=== PATIENT | female | born 1955 | race American Indian/Alaskan Native ===

== ENCOUNTER 2018-01-29 08:23 | Inpatient (IN) | payer BC ==
[2018-01-29 08:23] VITALS: BMI 28.1
[2018-01-29 09:02] LABS: LYMPH # 1.1 K/uL (1.0-4.3); MONO # 0.4 K/uL (0.0-0.8); NRBC % 0.2 % (0.0-2.0)
[2018-01-29 09:11] LABS: BASO # 0.1 K/uL (0.0-0.2); BASO % 1.2 % (0.0-2.0); LYMPH % 22.4 % (20.0-40.0); MEAN CORPUSCULAR HEMOGLOBIN 32.1 pg (27.0-31.0); MEAN CORPUSCULAR HGB CONC 34.9 g/dL (33.0-37.0); MONO % 7.6 % (0.0-10.0); NEUT # 3.5 K/uL (1.8-7.0); NEUT % 67.8 % (50.0-75.0); RBC 1.54 Mil/uL (3.80-5.20); RED CELL DISTRIBUTION WIDTH 15.1 % (11.5-14.5); WHITE BLOOD COUNT 5.1 K/uL (4.8-10.8)
[2018-01-29 09:13] LABS: INR 1.1; PROTHROMBIN TIME 12.5 SECONDS (9.7-12.2)
[2018-01-29 09:16] LABS: MEAN CELL VOLUME 91.9 fL (81.0-99.0)
[2018-01-29 09:19] LABS: ALB/GLOB RATIO 0.9 (1.0-2.1); ALBUMIN 2.9 g/dL (3.5-5.0); CALCIUM 8.3 mg/dl (8.6-10.4)
--- NOTE | 2018-01-29 09:49 | C.PDOC ---
History Of Present Illness Patient with history of Anemia presents to ED with c/o lightheadedness associated with nose bleeds for 2-3 days. Patient states she went to be checked as outpatient and hemoglobin was 4. Patient advised to come to ED for further evaluation and possible transfusion. Patient denies chest pain, sob, nausea, vomiting or any other complaints at this time. Time Seen by Provider: 01/29/18 09:03 Chief Complaint (Nursing): Abnormal Labs History Per: Patient History/Exam Limitations: no limitations Onset/Duration Of Symptoms: Days Current Symptoms Are (Timing): Still Present Past Medical History Reviewed: Historical Data, Nursing Documentation, Vital Signs Vital Signs: Last Vital Signs Temp 98.4 F 01/29/18 16:10 Pulse 71 01/29/18 16:10 Resp 20 01/29/18 16:10 BP 149/61 01/29/18 17:24 Pulse Ox 99 01/29/18 16:10 - Medical History PMH: Anemia, Diabetes, HTN Surgical History: No Surg Hx - [facility] Procedures TETANUS TOXOID ADMINIST (07/04/13) Family History: States: No Known Family Hx - Social History Hx Tobacco Use: No Hx Alcohol Use: No Hx Substance Use: No - Immunization History Hx Tetanus Toxoid Vaccination: No Hx Influenza Vaccination: No Hx Pneumococcal Vaccination: No Review Of Systems Constitutional: Negative for: Fever, Chills Cardiovascular: Positive for: Light Headedness. Negative for: Chest Pain Respiratory: Negative for: Shortness of Breath Gastrointestinal: Negative for: Nausea, Vomiting Skin: Negative for: Rash Physical Exam - Physical Exam Appears: Non-toxic, No Acute Distress Skin: Warm, Dry, No Rash Head: Atraumatic, Normacephalic Eye(s): bilateral: Normal Inspection Nose: Normal, No Epistaxis, No Deformity Oral Mucosa: Moist Tongue: Normal Appearing Lips: Normal Appearing Throat: No Erythema, No Exudate Neck: Normal ROM, Supple Cardiovascular: Rhythm Regular Respiratory: Normal Breath Sounds, No Rales, No Rhonchi, No Wheezing Gastrointestinal/Abdominal: Soft, No Tenderness, No Guarding, No Rebound Back: Normal Inspection, No CVA Tenderness Extremity: Normal ROM, Capillary Refill (<2 seconds), No Swelling Neurological/Psych: Oriented x3, Normal Speech, Normal Cognition, Normal Motor, Normal Sensation Gait: Steady ED Course And Treatment - Laboratory Results Result Diagrams: 01/29/18 08:56 01/29/18 08:56 O2 Sat by Pulse Oximetry: 100 (RA) Pulse Ox Interpretation: Normal Medical Decision Making Medical Decision Making: Plan: EKG, LABS Progress: Repeated labs Hemoglobin was 5 D/w Dr. Escobar patient to be admitted under his service. Disposition - Disposition Disposition: HOSPITALIZED Disposition Time: 09:51 Condition: STABLE - Clinical Impression Clinical Impression: Hyperkalemia, Anemia - PA / [employer] / Resident Statement MD/DO has reviewed & agrees with the documentation as recorded. - Scribe Statement The provider has reviewed the documentation as recorded by the Scribsammy Wilkerson All medical record entries made by the Denice were at my direction and personally dictated by me. I have reviewed the chart and agree that the record accurately reflects my personal performance of the history, physical exam, medical decision making, and the department course for this patient. I have also personally directed, reviewed, and agree with the discharge instructions and disposition.
--- NOTE | 2018-01-29 13:27 | PCM.SURG1 ---
Surgeon's Initial Post Op Note - Surgeon's Notes Surgeon: Alfredo Sharma MD Immigration Attorney: NONE Type of Anesthesia: Local Pre-Operative Diagnosis: Anemia Operative Findings: US showed a small but patent left basilic vein. Post-Operative Diagnosis: Anemia Operation Performed: Single lumen picc left basilic vein, 45 cm. Tip is in the SVC. Specimen/Specimens Removed: NONE Estimated Blood Loss: EBL {In ML}: 2 Blood Products Given: N/A Drains Used: No Drains Post-Op Condition: Fair Date of Surgery/Procedure: 01/29/18 Time of Surgery/Procedure: 13:20
--- NOTE | 2018-01-29 14:20 | US ---
HISTORY: elevated LFTs COMPARISON: None. TECHNIQUE: Grayscale imaging was performed. FINDINGS: LIVER: Measures 18.4 cm. There is diffuse increased echogenicity of the liver parenchyma. No mass. No intrahepatic bile duct dilatation. GALLBLADDER: The gallbladder is partially contracted There are gallstones and mild wall thickening without pericholecystic fluid. The sonographic Correa's sign is negative. COMMON BILE DUCT: Measures 7.7 mm. No stones. Mild diffuse dilatation. PANCREAS: Unremarkable as visualized. No mass. No ductal dilatation. RIGHT KIDNEY: Measures 9.0cm. Normal echogenicity. No calculus, mass, or hydronephrosis. LEFT KIDNEY: Measures 10.0cm. Normal echogenicity. No calculus, mass, or hydronephrosis. SPLEEN: Normal in size and contour. No mass. AORTA: No aneurysmal dilatation. IVC: Unremarkable. OTHER FINDINGS: None. IMPRESSION: Mild hepatomegaly. Diffuse increased echogenicity in the liver may reflect hepatic steatosis however parenchymal infectious/ inflammatory etiologies cannot be entirely excluded. Clinical and laboratory correlation is advised. . The gallbladder is partially contracted. Cholelithiasis. Mild diffuse dilatation of the common bile duct without evidence for choledocholithiasis. If clinically indicated, correlation with MRCP may be performed to exclude distal obstruction.
[2018-01-29] MEDS ORDERED: Sod Polystyrene Sulf 15 gm/60 ml Susp PO ONE (15:01)
--- NOTE | 2018-01-29 16:40 | CP.PCM.CON ---
History of Present Illness - History of Present Illness History of Present Illness: Initial Nephrology Consultation: Assessment: critical Acute Kidney Injury (N17.9) Anemia of acute blood loss likely GI blood loss hyperkalemia and metabolic acidosis Diabetic chronic Kidney Disease (E11.22) Hypertensive Chronic Kidney Disease (I12.9) Chronic Kidney Disease (N18.4) Stage 4 with ? mg proteinuria (R80.9) Anemia (D64.9), HTN (I12.9) chronic Hep C, HIV on HAART, overweight Plan No acute need for renal replacement therapy at this time but may need soon Hypertension control with meds as ordered. Hold ACEI/ARB/aldactone due to PRO and hyperkalemia medical management of hyperkalemia start sodium bicarb supplements 1300 mg bid. will also give IV iron and start epogen sc, MVI pt on PPI, getting PRBC continue with lasix Monitor Input/Output, daily weights and renal function with basic metabolic panel Check urine analysis, spot protein/creatinine and albumin/creatinine ratio, renal sonogram. Check serum protein electrophoresis with immunofixation, Hep B serology Dose meds/antibiotics for reduced GFR. Avoid fleets enema/magnesium based laxatives. Avoid nephrotoxins/NSAIDs/ iodinated contrast (unless needed emergently) Glycemic control Further work up/management as per primary team Thanks for allowing me to participate in care of your patient. Will follow patient with you. Please call if any Qs. d/w team Dr Glen Pedro Office: [phone] Chief Complaint; fatigue and tiredness HPI: Pt is a 62 F with hx of diabetes Mellitus (6 years), hypertension (6 years ) chronic Hep C, HIV on HAART and CKD stage 4 (f/up with Dr Castrejon) presented with complaints of feeling fatigue and tiredness x 1 week. also reports nasal bleed and dark stool x last few days. denies SOB. no nausea/vomitting. reports decreased appetite x 2 weeks. c/o mild leg swelling. denies bleeding from any other site Denies OTC/herbal meds or NSAIDs No recent iodinated contrast exposure. No obvious episodes of low BP. ROS: Cardiovascular: No chest pain. Pulmonary: No shortness of breath Gastrointestinal: denies abdominal pain No nausea. No vomiting. c/o dark stol Genitourinary: No pain while urinating. Denies blood in urine. All other negative except as in HPI Physical Examination: General Appearance: Comfortable, in no acute respiratory distress, co-operative . overweight Vitals reviewed and noted as below Head; Atraumatic, normocephalic ENT: no ulcers no thrush. Tongue is midline. Oropharynx: no rash or ulcers. EYES: Pupils are equal, round and reactive to light accommodation. Eye muscles and extraocular movement intact. Sclera is anicteric. Neck; supple no lymphadenopathy, no thyromegaly or bruit Lungs: Normal respiratory rate/effort. Breath sounds bilateral equal and clear Heart: Normal rate. s1s2 normal. No rub or gallop. Extremities: trace edema. No varicose veins Neurological: Patient is alert, awake and oriented to person, place and time. No focal deficit. Strength bilateral appropriate and equal Skin: Warm and dry. Normal turgor. No rash. Palpitation: Normal elasticity for age Abdomen: Abdomen is soft. Bowel sounds +. There is no abdominal tenderness, no guarding/rigidity no organomegaly Psych: normal insight and normal affect/mood MSK: no joint tenderness or swelling. Digits and nails normal, no deformity : kidney or bladder not palpable Labs/imaging reviewed. Past medical history, past surgical history, family history, social history, allergy reviewed and noted as below Family hx: no hx of CKD. Rest non-contributory work up: 01/21/2018: PTH 43 Phos 3.2 Vit D 53 TSAT 16% ferritin 225 uric acid 6.2 a1c 6.8% LDL 49 Hb 9.5 Past Patient History - Past Medical History & Family History Past Medical History?: Yes - Past Social History Smoking Status: Never Smoked - CARDIAC Hx Hypertension: Yes - NEUROLOGICAL Hx Seizures: Yes (" a long time ago, I've been off keppra for years") - RENAL Hx Chronic Kidney Disease: Yes Other/Comment: "kidney disease" - HEMATOLOGICAL/ONCOLOGICAL Hx Anemia: Yes - MUSCULOSKELETAL/RHEUMATOLOGICAL Hx Falls: No - PSYCHIATRIC Hx Substance Use: No - SURGICAL HISTORY Hx Surgeries: No Meds Allergies/Adverse Reactions: Allergies Allergy/AdvReac Type Severity Reaction Status Date / Time No Known Allergies Allergy Verified 01/29/18 08:29 - Medications Medications: Current Medications Calcium Gluconate 9.3 meq/ (Sodium Chloride) 270 mls @ 50 mls/hr IVPB ONCE ONE PRN Reason: Per Protocol Stop: 01/29/18 22:23 Pantoprazole Sodium (Protonix Inj) 40 mg IVP Q12 [facility] Last Admin: 01/29/18 15:39 Dose: 40 mg Sodium Bicarbonate (Sodium Bicarbonate Tab) 1,300 mg PO BID [facility] Results - Vital Signs Recent Vital Signs: Last Vital Signs Temp 98.4 F 01/29/18 16:10 Pulse 71 01/29/18 16:10 Resp 20 01/29/18 16:10 BP 149/72 01/29/18 16:10 Pulse Ox 99 01/29/18 16:10 - Labs Result Diagrams: 01/29/18 08:56 01/29/18 08:56 Labs: Laboratory Results - last 24 hr 01/29/18 01/29/18 01/29/18 08:56 08:56 08:56 WBC 5.1 RBC 1.54 L Hgb 5.0 L* D Hct 14.2 L MCV 91.9 D MCH 32.1 H MCHC 34.9 RDW 15.1 H Plt Count 90 L D MPV 9.0 Neut % (Auto) 67.8 Lymph % (Auto) 22.4 [place] % (Auto) 7.6 Eos % (Auto) 1.0 Baso % (Auto) 1.2 Neut # (Auto) 3.5 Lymph # (Auto) 1.1 [place] # (Auto) 0.4 Eos # (Auto) 0.0 Baso # (Auto) 0.1 Differential Comment PT 12.5 H INR 1.1 APTT 29 Sodium 140 Potassium 6.1 H Chloride 116 H Carbon Dioxide 12 L Anion Gap 17 BUN 83 H Creatinine 3.5 H Est GFR ( Amer) 16 Est GFR (Non-Af Amer) 13 Random Glucose 308 H Calcium 8.3 L Total Bilirubin 0.4 AST 67 H ALT 104 H D Alkaline Phosphatase 92 Total Protein 6.2 L Albumin 2.9 L D Globulin 3.3 Albumin/Globulin Ratio 0.9 L Blood Type Antibody Screen 01/29/18 08:56 WBC RBC Hgb Hct MCV MCH MCHC RDW Plt Count MPV Neut % (Auto) Lymph % (Auto) [place] % (Auto) Eos % (Auto) Baso % (Auto) Neut # (Auto) Lymph # (Auto) [place] # (Auto) Eos # (Auto) Baso # (Auto) Differential Comment PT INR APTT Sodium Potassium Chloride Carbon Dioxide Anion Gap BUN Creatinine Est GFR ( Amer) Est GFR (Non-Af Amer) Random Glucose Calcium Total Bilirubin AST ALT Alkaline Phosphatase Total Protein Albumin Globulin Albumin/Globulin Ratio Blood Type O POSITIVE Antibody Screen Negative
[2018-01-29] MEDS ORDERED: Calcium Gluconate 9.3 MEQ in Sodium Chloride 0.9% 250 ML IVPB ONE ×3 (17:00→22:00)
--- NOTE | 2018-01-29 18:08 | CP.PCM.CON ---
History of Present Illness - History of Present Illness History of Present Illness: 62 yo female known to Dr Andrews from the office- admitted with weakness and severe anemia. Pt reports recent nosebleeds. Had constipation and hard BMS- with straining developed some rectal bleeding. No more bleeding this afternoon. Denies abdom pain. PMH: H dis, CRI, HCV colonsocopy 3 months ago: done. EGD 3 yrs ago- gastritis. Review of Systems - Constitutional Constitutional: Anorexia, Fatigue, Weakness. absent: Fever, Headache, Weight Gain, Weight Loss - EENT Eyes: absent: Photophobia Nose/Mouth/Throat: absent: Lip Swelling - Cardiovascular Cardiovascular: absent: Chest Pain, Dyspnea - Respiratory Respiratory: absent: Hemoptysis, Wheezing - Gastrointestinal Gastrointestinal: Constipation, Hematochezia. absent: Coffee Ground Emesis, Dysphagia, Hematemesis, Melena, Vomiting - Genitourinary Genitourinary: absent: Hematuria - Musculoskeletal Musculoskeletal: absent: Deformity - Integumentary Integumentary: absent: Erythema - Neurological Neurological: absent: Convulsions - Psychiatric Psychiatric: absent: Behavioral Changes, Confusion Past Patient History - Past Medical History & Family History Past Medical History?: Yes - Past Social History Smoking Status: Never Smoked - CARDIAC Hx Hypertension: Yes - NEUROLOGICAL Hx Seizures: Yes (" a long time ago, I've been off keppra for years") - RENAL Hx Chronic Kidney Disease: Yes Other/Comment: "kidney disease" - HEMATOLOGICAL/ONCOLOGICAL Hx Anemia: Yes - MUSCULOSKELETAL/RHEUMATOLOGICAL Hx Falls: No - PSYCHIATRIC Hx Substance Use: No - SURGICAL HISTORY Hx Surgeries: No Meds Allergies/Adverse Reactions: Allergies Allergy/AdvReac Type Severity Reaction Status Date / Time No Known Allergies Allergy Verified 01/29/18 08:29 - Medications Medications: Current Medications Epoetin Kemal (Procrit) 8,000 unit SC F [facility] Ferric Sodium Gluconate Complex (Ferrlecit) 125 mg IVPB DAILY [facility] Stop: 02/03/18 10:01 Furosemide (Lasix) 40 mg PO QPM [facility] Last Admin: 01/29/18 17:24 Dose: 40 mg Calcium Gluconate 9.3 meq/ (Sodium Chloride) 270 mls @ 50 mls/hr IVPB ONCE ONE PRN Reason: Per Protocol Stop: 01/30/18 00:23 Pantoprazole Sodium (Protonix Inj) 40 mg IVP Q12 [facility] Last Admin: 01/29/18 15:39 Dose: 40 mg Sodium Bicarbonate (Sodium Bicarbonate Tab) 1,300 mg PO BID [facility] Last Admin: 01/29/18 17:26 Dose: 1,300 mg Vitamin B Complex/Vit C/Folic Acid (Nephro-Nadya) 1 tab PO 0800 [facility] Physical Exam - Constitutional Appears: Well - Respiratory Exam Respiratory Exam: Clear to Auscultation Bilateral - Cardiovascular Exam Cardiovascular Exam: RRR - GI/Abdominal Exam GI & Abdominal Exam: Normal Bowel Sounds, Soft. absent: Distended, Guarding, Mass, Rebound, Rigid, Tenderness - Extremities Exam Extremities exam: Negative for: normal inspection - Neurological Exam Neurological exam: Alert, Oriented x3 Results - Vital Signs Recent Vital Signs: Last Vital Signs Temp 98.4 F 01/29/18 16:10 Pulse 71 01/29/18 16:10 Resp 20 01/29/18 16:10 BP 149/61 01/29/18 17:24 Pulse Ox 100 01/29/18 17:43 - Labs Result Diagrams: 01/29/18 08:56 01/29/18 08:56 Labs: Laboratory Results - last 24 hr 01/29/18 01/29/18 01/29/18 08:56 08:56 08:56 WBC 5.1 RBC 1.54 L Hgb 5.0 L* D Hct 14.2 L MCV 91.9 D MCH 32.1 H MCHC 34.9 RDW 15.1 H Plt Count 90 L D MPV 9.0 Neut % (Auto) 67.8 Lymph % (Auto) 22.4 [place] % (Auto) 7.6 Eos % (Auto) 1.0 Baso % (Auto) 1.2 Neut # (Auto) 3.5 Lymph # (Auto) 1.1 [place] # (Auto) 0.4 Eos # (Auto) 0.0 Baso # (Auto) 0.1 Differential Comment PT 12.5 H INR 1.1 APTT 29 Sodium 140 Potassium 6.1 H Chloride 116 H Carbon Dioxide 12 L Anion Gap 17 BUN 83 H Creatinine 3.5 H Est GFR ( Amer) 16 Est GFR (Non-Af Amer) 13 POC Glucose (mg/dL) Random Glucose 308 H Calcium 8.3 L Total Bilirubin 0.4 AST 67 H ALT 104 H D Alkaline Phosphatase 92 Total Protein 6.2 L Albumin 2.9 L D Globulin 3.3 Albumin/Globulin Ratio 0.9 L Blood Type Antibody Screen 01/29/18 01/29/18 08:56 17:37 WBC RBC Hgb Hct MCV MCH MCHC RDW Plt Count MPV Neut % (Auto) Lymph % (Auto) [place] % (Auto) Eos % (Auto) Baso % (Auto) Neut # (Auto) Lymph # (Auto) [place] # (Auto) Eos # (Auto) Baso # (Auto) Differential Comment PT INR APTT Sodium Potassium Chloride Carbon Dioxide Anion Gap BUN Creatinine Est GFR ( Amer) Est GFR (Non-Af Amer) POC Glucose (mg/dL) 316 H Random Glucose Calcium Total Bilirubin AST ALT Alkaline Phosphatase Total Protein Albumin Globulin Albumin/Globulin Ratio Blood Type O POSITIVE Antibody Screen Negative Assessment & Plan (1) HCV (hepatitis C virus) Status: Acute (2) Epistaxis Status: Acute (3) Rectal bleeding Status: Acute (4) Constipation Status: Acute (5) Anemia Assessment and Plan: Consoder due to: CRF, epistaxis. Doubt from rectal bleedi ng- pt had colonscopy 3 months ago. COnsider PUD. REC: PPI, check Hb, consider EGD- check K+ Status: Acute (6) Hyperkalemia Status: Acute
[2018-01-29] MEDS: (Lantus) Insulin Glargine, Recombinant SC SCH (22:00)
--- NOTE | 2018-01-29 23:04 | CP.PCM.HP ---
Past Patient History - Past Medical History & Family History Past Medical History?: Yes - Past Social History Smoking Status: Never Smoked - CARDIAC Hx Hypertension: Yes - NEUROLOGICAL Hx Seizures: Yes (" a long time ago, I've been off keppra for years") - RENAL Hx Chronic Kidney Disease: Yes Other/Comment: "kidney disease" - HEMATOLOGICAL/ONCOLOGICAL Hx Anemia: Yes - MUSCULOSKELETAL/RHEUMATOLOGICAL Hx Falls: No - PSYCHIATRIC Hx Substance Use: No - SURGICAL HISTORY Hx Surgeries: No Meds Allergies/Adverse Reactions: Allergies Allergy/AdvReac Type Severity Reaction Status Date / Time No Known Allergies Allergy Verified 01/29/18 08:29 Results - Vital Signs Recent Vital Signs: Last Vital Signs Temp 97.8 F 01/29/18 21:43 Pulse 86 01/29/18 21:43 Resp 20 01/29/18 21:43 BP 156/83 H 01/29/18 21:43 Pulse Ox 100 01/29/18 17:43 - Labs Result Diagrams: 01/29/18 08:56 01/29/18 08:56 Labs: Laboratory Results - last 24 hr 01/29/18 01/29/18 01/29/18 08:56 08:56 08:56 WBC 5.1 RBC 1.54 L Hgb 5.0 L* D Hct 14.2 L MCV 91.9 D MCH 32.1 H MCHC 34.9 RDW 15.1 H Plt Count 90 L D MPV 9.0 Neut % (Auto) 67.8 Lymph % (Auto) 22.4 [place] % (Auto) 7.6 Eos % (Auto) 1.0 Baso % (Auto) 1.2 Neut # (Auto) 3.5 Lymph # (Auto) 1.1 [place] # (Auto) 0.4 Eos # (Auto) 0.0 Baso # (Auto) 0.1 Differential Comment PT 12.5 H INR 1.1 APTT 29 Sodium 140 Potassium 6.1 H Chloride 116 H Carbon Dioxide 12 L Anion Gap 17 BUN 83 H Creatinine 3.5 H Est GFR ( Amer) 16 Est GFR (Non-Af Amer) 13 POC Glucose (mg/dL) Random Glucose 308 H Calcium 8.3 L Total Bilirubin 0.4 AST 67 H ALT 104 H D Alkaline Phosphatase 92 Total Protein 6.2 L Albumin 2.9 L D Globulin 3.3 Albumin/Globulin Ratio 0.9 L Blood Type Antibody Screen 05/03/18 05/03/18 05/03/18 08:56 17:37 20:49 WBC RBC Hgb Hct MCV MCH MCHC RDW Plt Count MPV Neut % (Auto) Lymph % (Auto) [place] % (Auto) Eos % (Auto) Baso % (Auto) Neut # (Auto) Lymph # (Auto) [place] # (Auto) Eos # (Auto) Baso # (Auto) Differential Comment PT INR APTT Sodium Potassium Chloride Carbon Dioxide Anion Gap BUN Creatinine Est GFR ( Amer) Est GFR (Non-Af Amer) POC Glucose (mg/dL) 316 H 276 H Random Glucose Calcium Total Bilirubin AST ALT Alkaline Phosphatase Total Protein Albumin Globulin Albumin/Globulin Ratio Blood Type O POSITIVE Antibody Screen Negative
--- NOTE | 2018-01-30 01:08 | CP.PCM.CON ---
History of Present Illness - History of Present Illness History of Present Illness: INFECTIOUS DISEASE CONSULTATION KESHIA LIPSCOMB MD, FACP 3T 371-B 01/29/2018 15:00 CHART REVIEWED PT EXAMINED CASE DISCUSSED WITH 3T RN'S 62 YR OLD FEMALE ADMITTED VIA DR DSOUZA BECAUSE OF ANEMIA BETWEEN 4-5 HGH, WITH SYMPTOMATIC ISSUES, DIZZYNESS, FATIGUE AND LIGHTHEADEDNESS, COMPLAINING OF NOSE BLEEDS AND BLOODY BM'S. 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 absent: Fever - EENT Nose/Mouth/Throat: Epistaxis, Dry Mouth, Sore Throat. absent: Nasal Trauma - Cardiovascular Cardiovascular: Diaphoresis, Dyspnea on Exertion, Irregular Heart Rhythm, Leg Edema, Lightheadedness, Rapid Heart Rate - Respiratory Respiratory: Dyspnea on Exertion - Gastrointestinal Gastrointestinal: Change in Bowel Habits, Hematochezia. absent: Abdominal Pain - Musculoskeletal Musculoskeletal: Muscle Weakness, Stiffness - Integumentary Integumentary: absent: Bleeding Lesions, Lesions, Non-Healing Lesions - Neurological Neurological: Abnormal Hearing, Dizziness, Headaches, Weakness - Psychiatric Psychiatric: Mood Swings - Hematologic/Lymphatic Hematologic: Easy Bleeding, Other (NOSE/ANUS) Past Patient History - Tetanus Immunizations Tetanus Immunization: Unknown - Past Medical History & Family History Past Medical History?: Yes - Past Social History Smoking Status: Never Smoked Chewing Tobacco Use: No Cigar Use: No Home Situation {Lives}: Alone - CARDIAC Hx Cardiac Disorders: Yes Hx Hypertension: Yes - NEUROLOGICAL Hx Neurological Disorder: Yes Hx Seizures: Yes (" a long time ago, I've been off keppra for years") Other/Comment: HX: EPIDURAL ABSCESS - RENAL Hx Chronic Kidney Disease: Yes Other/Comment: "kidney disease" - HEMATOLOGICAL/ONCOLOGICAL Hx Blood Disorders: Yes Hx AIDS: Yes Hx Anemia: Yes Hx Hepatitis C: Yes Hx Human Immunodeficiency Virus (HIV): Yes Hx Unexplained Bleeding: Yes - MUSCULOSKELETAL/RHEUMATOLOGICAL Hx Falls: No - GASTROINTESTINAL Hx Gastrointestinal Disorders: Yes Hx Hemorrhoids: Yes Other/Comment: HEPATITIS C - PSYCHIATRIC Hx Substance Use: No Other/Comment: AFFECT NOTED - SURGICAL HISTORY Hx Surgeries: Yes Meds Allergies/Adverse Reactions: Allergies Allergy/AdvReac Type Severity Reaction Status Date / Time No Known Allergies Allergy Verified 01/29/18 08:29 - Medications Medications: Current Medications Epoetin Kemal (Procrit) 8,000 unit SC MWF [facility] Ferric Sodium Gluconate Complex (Ferrlecit) 125 mg IVPB DAILY [facility] Stop: 02/03/18 10:01 Furosemide (Lasix) 40 mg PO QPM [facility] Last Admin: 01/29/18 17:24 Dose: 40 mg Calcium Gluconate 9.3 meq/ (Sodium Chloride) 270 mls @ 50 mls/hr IVPB ONCE ONE PRN Reason: Per Protocol Stop: 01/30/18 03:23 Last Admin: 01/29/18 22:00 Dose: 50 mls/hr Insulin Glargine (Lantus) 20 unit SC HS [facility] Last Admin: 01/29/18 22:00 Dose: 20 units Pantoprazole Sodium (Protonix Inj) 40 mg IVP Q12 [facility] Last Admin: 01/29/18 22:06 Dose: 40 mg Sodium Bicarbonate (Sodium Bicarbonate Tab) 1,300 mg PO BID [facility] Last Admin: 01/29/18 17:26 Dose: 1,300 mg Vitamin B Complex/Vit C/Folic Acid (Nephro-Nadya) 1 tab PO 0800 [facility] Zolpidem Tartrate (Ambien) 5 mg PO HS PRN PRN Reason: Insomnia Last Admin: 01/29/18 21:59 Dose: 5 mg Physical Exam - Constitutional Appears: Non-toxic - Head Exam Head Exam: ATRAUMATIC - Eye Exam Eye Exam: Normal appearance. absent: Scleral icterus - Neck Exam Neck exam: Positive for: Normal Inspection - Respiratory Exam Respiratory Exam: NORMAL BREATHING PATTERN. absent: Rales, Wheezes - Cardiovascular Exam Cardiovascular Exam: Tachycardia - GI/Abdominal Exam GI & Abdominal Exam: Normal Bowel Sounds, Soft. absent: Tenderness - Rectal Exam Rectal Exam: Deferred - Extremities Exam Additional comments: TRACE EDEMA - Neurological Exam Neurological exam: Alert, Oriented x3 - Psychiatric Exam Additional comments: AFFECT NOTED - Skin Skin Exam: Warm Results - Vital Signs Recent Vital Signs: Last Vital Signs Temp 97.8 F 01/29/18 21:43 Pulse 86 01/29/18 21:43 Resp 20 01/29/18 21:43 BP 156/83 H 01/29/18 21:43 Pulse Ox 100 01/29/18 17:43 - Labs Result Diagrams: 01/29/18 08:56 01/29/18 08:56 Labs: Laboratory Results - last 24 hr 01/29/18 01/29/18 01/29/18 08:56 08:56 08:56 WBC 5.1 RBC 1.54 L Hgb 5.0 L* D Hct 14.2 L MCV 91.9 D MCH 32.1 H MCHC 34.9 RDW 15.1 H Plt Count 90 L D MPV 9.0 Neut % (Auto) 67.8 Lymph % (Auto) 22.4 [place] % (Auto) 7.6 Eos % (Auto) 1.0 Baso % (Auto) 1.2 Neut # (Auto) 3.5 Lymph # (Auto) 1.1 [place] # (Auto) 0.4 Eos # (Auto) 0.0 Baso # (Auto) 0.1 Differential Comment PT 12.5 H INR 1.1 APTT 29 Sodium 140 Potassium 6.1 H Chloride 116 H Carbon Dioxide 12 L Anion Gap 17 BUN 83 H Creatinine 3.5 H Est GFR ( Amer) 16 Est GFR (Non-Af Amer) 13 POC Glucose (mg/dL) Random Glucose 308 H Calcium 8.3 L Total Bilirubin 0.4 AST 67 H ALT 104 H D Alkaline Phosphatase 92 Total Protein 6.2 L Albumin 2.9 L D Globulin 3.3 Albumin/Globulin Ratio 0.9 L Blood Type Antibody Screen 01/29/18 01/29/18 01/29/18 08:56 17:37 20:49 WBC RBC Hgb Hct MCV MCH MCHC RDW Plt Count MPV Neut % (Auto) Lymph % (Auto) [place] % (Auto) Eos % (Auto) Baso % (Auto) Neut # (Auto) Lymph # (Auto) [place] # (Auto) Eos # (Auto) Baso # (Auto) Differential Comment PT INR APTT Sodium Potassium Chloride Carbon Dioxide Anion Gap BUN Creatinine Est GFR ( Amer) Est GFR (Non-Af Amer) POC Glucose (mg/dL) 316 H 276 H Random Glucose Calcium Total Bilirubin AST ALT Alkaline Phosphatase Total Protein Albumin Globulin Albumin/Globulin Ratio Blood Type O POSITIVE Antibody Screen Negative Assessment & Plan (1) Anemia Status: Acute Priority: High (2) Epistaxis Status: Acute Priority: Medium (3) HCV (hepatitis C virus) Status: Chronic (4) HIV (human immunodeficiency virus infection) Status: Chronic Priority: Medium (5) Hyperkalemia Status: Acute Priority: Medium (6) Renal insufficiency Status: Chronic Priority: Medium
[2018-01-30 07:59] LABS: BASO % 0.7 % (0.0-2.0); EOS # 0.1 K/uL (0.0-0.7); EOS % 2.1 % (0.0-4.0); LYMPH # 1.8 K/uL (1.0-4.3); LYMPH % 29.1 % (20.0-40.0); MEAN CORPUSCULAR HEMOGLOBIN 30.9 pg (27.0-31.0); MEAN CORPUSCULAR HGB CONC 34.8 g/dL (33.0-37.0); MEAN PLATELET VOLUME 8.7 fL (7.2-11.7); MONO # 0.5 K/uL (0.0-0.8); MONO % 8.1 % (0.0-10.0); NEUT # 3.7 K/uL (1.8-7.0); NRBC % 0.4 % (0.0-2.0); RBC 2.41 Mil/uL (3.80-5.20); RED CELL DISTRIBUTION WIDTH 14.9 % (11.5-14.5); WHITE BLOOD COUNT 6.2 K/uL (4.8-10.8)
[2018-01-30 08:01] LABS: HEMOGLOBIN 7.4 g/dL (11.0-16.0)
[2018-01-30 08:02] LABS: MEAN CELL VOLUME 88.9 fL (81.0-99.0)
[2018-01-30 08:07] LABS: INR 1.1; PROTHROMBIN TIME 12.2 SECONDS (9.7-12.2)
[2018-01-30 08:22] LABS: ALB/GLOB RATIO 0.9 (1.0-2.1); ALBUMIN 2.9 g/dL (3.5-5.0); ALT/SGPT 99 U/L (9-52); AST/SGOT 71 U/L (14-36); BLOOD UREA NITROGEN 68 mg/dL (7-17); CALCIUM 8.4 mg/dl (8.6-10.4); GFR AFRICAN-AMERICAN 16; GFR NON-AFRICAN AMERICAN 13
[2018-01-30] MEDS: Multivitamin Vitamin B Complex (Nephro-Vite) Tab PO SCH (08:28)
[2018-01-30 08:34] LABS: SQUAMOUS EPITHIAL 1 /hpf (0-5); URINE AMORPHOUS SEDIMENT OCC /ul (<OCC); URINE BACTERIA OCC (<OCC); URINE BILIRUBIN NEGATIVE (NEGATIVE); URINE BLOOD 2+ (NEGATIVE); URINE CLARITY Hazy (Clear); URINE COLOR Yellow (YELLOW); URINE GLUCOSE (UA) NORMAL (Normal); URINE LEUKOCYTE ESTERASE 1+ Leu/uL (Negative); URINE PROTEIN NEGATIVE (NEGATIVE); URINE UROBILINOGEN NORMAL mg/dL (0.2-1.0)
[2018-01-30 08:52] LABS: HEPATITIS B SURFACE AG Negative (NEGATIVE)
[2018-01-30 08:58] LABS: HEPATITIS B CORE AB NEGATIVE (NEGATIVE)
[2018-01-30] MEDS: Ferric Sodium Gluconat Complex 62.5 mg/5 ml Vial IVPB SCH (09:21)
[2018-01-30] MEDS: Epoetin Alfa 4000 UNIT/ML Inj SC SCH (09:23)
[2018-01-30 09:27] LABS: FOLATE 10.7 ng/mL
[2018-01-30] MEDS ORDERED: Propofol 10 mg/ml Inj (20 ML) ONE (09:59)
[2018-01-30] MEDS ORDERED: Lidocaine Hydrochloride 5 ML INJ ONE (10:28)
[2018-01-30] MEDS ORDERED: Sodium Chloride 0.9% 1,000 ML IV ONE (10:35)
[2018-01-30] MEDS: (Novolin R) Insulin Human Regular 100 units/ml vial SC SCH ×3 (12:10→21:30)
--- NOTE | 2018-01-30 13:28 | US ---
Date of procedure: 01/29/2018 Procedure: Ultrasound guidance for vascular access HISTORY: Infection requiring long-term IV antibiotics TECHNIQUE: Following informed consent and procedure time-out, the patient placed supine on the interventional table and the left arm prepped and draped in the usual sterile fashion. Ultrasound showed a patent and compressible basilic vein. After the skin was anesthetized with lidocaine, the basilic vein was accessed with micro micropuncture technique using ultrasound guidance. An image documenting ultrasound guidance for vascular access was permanently saved. IMPRESSION: Ultrasound guidance for vascular access for placement of PICC.
--- NOTE | 2018-01-30 13:29 | RAD ---
PROCEDURE: Date of procedure: 01/29/2018 Procedure: 1. Placement of a left arm PICC with ultrasound and fluoroscopic guidance, CPT 83695 2. PICC tip confirmation with spot radiograph and is in the superior vena cava Medications: 1 percent lidocaine Total Fluoro time: 103.6 seconds Radiation: 3.1 MGy EBL: 3 cc HISTORY: Infection requiring long-term IV antibiotics TECHNIQUE: Following informed consent and procedure time-out, the patient placed supine on the interventional table and the left arm prepped and draped in the usual sterile fashion. Ultrasound showed a patent and compressible left basilic vein. After the skin was anesthetized with lidocaine, the basilic vein was accessed with micro micropuncture technique using ultrasound guidance. A guidewire was then advanced under fluoroscopic guidance into the superior vena cava. An image documenting ultrasound guidance for vascular access was permanently saved. The length of a single-lumen 4 Vincentian PICC was trimmed to 45 cm and advanced through a peel-away sheath. The PICC was position with tip of PICC confirm a spot radiograph the superior vena cava. The PICC was secured to the patient's skin. The PICC was flushed. A biopatch and sterile dressing was applied. IMPRESSION: Placement of a single-lumen 4 Vincentian PICC left basilic vein trimmed to 45 cm. The tip of the PICC is confirmed with spot radiograph and is in the superior vena cava.
--- NOTE | 2018-01-30 15:53 | CP.PCM.PN ---
Subjective - Date & Time of Evaluation Date of Evaluation: 01/30/18 Time of Evaluation: 15:50 - Subjective Subjective: Nephrology Consultation Note: Assessment: stable Acute Kidney Injury (N17.9) Anemia of acute blood loss likely GI blood loss. s/p EGD showed gastric AVMs hyperkalemia and metabolic acidosis Diabetic chronic Kidney Disease (E11.22) Hypertensive Chronic Kidney Disease (I12.9) Chronic Kidney Disease (N18.4) Stage 4 without proteinuria (R80.9) Anemia (D64.9), HTN (I12.9) chronic Hep C, HIV on HAART, overweight Plan No acute need for renal replacement therapy at this time Hypertension control with meds as ordered. Hold ACEI/ARB/aldactone due to PRO and hyperkalemia medical management of hyperkalemia as needed basis start sodium bicarb supplements 1300 mg bid. will also give IV iron and started epogen sc, MVI pt on PPI, s/p PRBC continue with lasix Monitor Input/Output, daily weights and renal function with basic metabolic panel Check urine analysis, spot protein/creatinine and albumin/creatinine ratio, renal sonogram. Check serum protein electrophoresis with immunofixation (as pt with hx of bence salazar proteinuria) Dose meds/antibiotics for reduced GFR. Avoid fleets enema/magnesium based laxatives. Avoid nephrotoxins/NSAIDs/ iodinated contrast (unless needed emergently) Glycemic control Further work up/management as per primary team Thanks for allowing me to participate in care of your patient. Will follow patient with you. Please call if any Qs. d/w team Dr Glen Pedro Office: [phone] Chief Complaint; none today HPI: Pt is a 62 F with hx of diabetes Mellitus (6 years), hypertension (6 years ) chronic Hep C, HIV on HAART and CKD stage 4 (f/up with Dr Castrejon) presented with complaints of feeling fatigue and tiredness x 1 week. also reports nasal bleed and dark stool x last few days. denies SOB. no nausea/vomitting. reports decreased appetite x 2 weeks. c/o mild leg swelling. denies bleeding from any other site Denies OTC/herbal meds or NSAIDs No recent iodinated contrast exposure. No obvious episodes of low BP. ROS: feels better Cardiovascular: No chest pain. Pulmonary: No shortness of breath Gastrointestinal: denies abdominal pain No nausea. No vomiting. Genitourinary: No pain while urinating. Denies blood in urine. All other negative except as in HPI Physical Examination: General Appearance: Comfortable, in no acute respiratory distress, co-operative . overweight Vitals reviewed and noted as below Head; Atraumatic, normocephalic ENT: no ulcers no thrush. Tongue is midline. Oropharynx: no rash or ulcers. EYES: Pupils are equal, round and reactive to light accommodation. Eye muscles and extraocular movement intact. Sclera is anicteric. Neck; supple no lymphadenopathy, no thyromegaly or bruit Lungs: Normal respiratory rate/effort. Breath sounds bilateral equal and clear Heart: Normal rate. s1s2 normal. No rub or gallop. Extremities: no edema. No varicose veins Neurological: Patient is alert, awake and oriented to person, place and time. No focal deficit. Strength bilateral appropriate and equal Skin: Warm and dry. Normal turgor. No rash. Palpitation: Normal elasticity for age Abdomen: Abdomen is soft. Bowel sounds +. There is no abdominal tenderness, no guarding/rigidity no organomegaly Psych: normal insight and normal affect/mood MSK: no joint tenderness or swelling. Digits and nails normal, no deformity : kidney or bladder not palpable Labs/imaging reviewed. Past medical history, past surgical history, family history, social history, allergy reviewed and noted as below Family hx: no hx of CKD. Rest non-contributory work up: 01/21/2018: PTH 43 Phos 3.2 Vit D 53 TSAT 16% ferritin 225 uric acid 6.2 a1c 6.8% LDL 49 Hb 9.5 plat 90 creatinine 3.1 Objective - Vital Signs/Intake and Output Vital Signs (last 24 hours): Temp Pulse Resp BP Pulse Ox 98 F 77 18 150/77 100 01/30/18 11:04 01/30/18 11:34 01/30/18 11:34 01/30/18 11:34 01/30/18 11:34 Intake and Output: 01/30/18 01/30/18 06:59 18:59 Intake Total 525 Balance 525 - Medications Medications: Current Medications Epoetin Kemal (Procrit) 8,000 unit SC [facility] Last Admin: 01/30/18 09:23 Dose: 8,000 unit Ferric Sodium Gluconate Complex (Ferrlecit) 125 mg IVPB DAILY [facility] Stop: 02/03/18 10:01 Last Admin: 01/30/18 09:21 Dose: 125 mg Furosemide (Lasix) 40 mg PO QPM [facility] Last Admin: 01/29/18 17:24 Dose: 40 mg Insulin Glargine (Lantus) 20 unit SC HS [facility] Last Admin: 01/29/18 22:00 Dose: 20 units Insulin Human Regular (Novolin R) 0 unit SC ACHS [facility] PRN Reason: Protocol Last Admin: 01/30/18 12:10 Dose: Not Given Pantoprazole Sodium (Protonix Inj) 40 mg IVP Q12 [facility] Last Admin: 01/30/18 09:23 Dose: 40 mg Sodium Bicarbonate (Sodium Bicarbonate Tab) 1,300 mg PO BID [facility] Last Admin: 01/30/18 09:04 Dose: Not Given Vitamin B Complex/Vit C/Folic Acid (Nephro-Nadya) 1 tab PO 0800 [facility] Last Admin: 01/30/18 08:28 Dose: Not Given Zolpidem Tartrate (Ambien) 5 mg PO HS PRN PRN Reason: Insomnia Last Admin: 01/29/18 21:59 Dose: 5 mg - Labs Labs: 01/30/18 07:52 01/30/18 07:52 PT 12.2 SECONDS (9.7-12.2) 01/30/18 07:52 INR 1.1 01/30/18 07:52 APTT 29 SECONDS (21-34) 01/30/18 07:52
[2018-01-30 18:39] LABS: BASO # 0.1 K/uL (0.0-0.2); BASO % 0.9 % (0.0-2.0); EOS # 0.1 K/uL (0.0-0.7); EOS % 1.8 % (0.0-4.0); HEMOGLOBIN 8.1 g/dL (11.0-16.0); LYMPH # 1.5 K/uL (1.0-4.3); LYMPH % 22.5 % (20.0-40.0); MEAN CELL VOLUME 89.4 fL (81.0-99.0); MEAN CORPUSCULAR HEMOGLOBIN 31.4 pg (27.0-31.0); MEAN CORPUSCULAR HGB CONC 35.2 g/dL (33.0-37.0); MEAN PLATELET VOLUME 8.3 fL (7.2-11.7); MONO # 0.5 K/uL (0.0-0.8); MONO % 7.7 % (0.0-10.0); NEUT # 4.3 K/uL (1.8-7.0); NEUT % 67.1 % (50.0-75.0); NRBC % 0.2 % (0.0-2.0); RBC 2.59 Mil/uL (3.80-5.20); RED CELL DISTRIBUTION WIDTH 15.3 % (11.5-14.5); WHITE BLOOD COUNT 6.5 K/uL (4.8-10.8)
--- NOTE | 2018-01-30 21:19 | CP.PCM.PN ---
Subjective - Date & Time of Evaluation Date of Evaluation: 01/30/18 Time of Evaluation: 21:16 - Subjective Subjective: INFECTIUS DISEASE PROGRESS NOTE KESHIA LIPSCOMB MD, FACP 3T 371-B 01/30/2018 CHART REVIEWED PT EXAMINED CASE DISCUSSED 62 YR OLD AAF S/P UPPER ENDOSCOPY-2GI BLOOD LOSS, ETIOLOGY TO BE DETERMINED UNDER MULTIPLE PHYSICIANS BECAUSE OF MULTIPLE MEDICAL PROBLEMS ID ROBINS WILL RENEED HER VIREAD BIW AND EMTRIVA BIW AND EDURANT 25MG OD. PHARMACY WILL NEED TO MAKE AVAILABLE. FOR TRANSFUSION Objective - Vital Signs/Intake and Output Vital Signs (last 24 hours): Temp Pulse Resp BP Pulse Ox 98.4 F 90 20 157/78 H 100 01/30/18 16:00 01/30/18 16:00 01/30/18 16:00 01/30/18 16:00 01/30/18 16:00 Intake and Output: 01/30/18 01/31/18 18:59 06:59 Intake Total 500 Balance 500 - Medications Medications: Current Medications Emtricitabine (Emtriva) 200 mg PO MoFr [facility] PRN Reason: Protocol Epoetin Kemal (Procrit) 8,000 unit SC MWF [facility] Last Admin: 01/30/18 09:23 Dose: 8,000 unit Ferric Sodium Gluconate Complex (Ferrlecit) 125 mg IVPB DAILY [facility] Stop: 02/03/18 10:01 Last Admin: 01/30/18 09:21 Dose: 125 mg Furosemide (Lasix) 40 mg PO DAILY [facility] Insulin Glargine (Lantus) 20 unit SC HS [facility] Last Admin: 01/29/18 22:00 Dose: 20 units Insulin Human Regular (Novolin R) 0 unit SC ACHS [facility] PRN Reason: Protocol Last Admin: 01/30/18 17:34 Dose: Not Given Pantoprazole Sodium (Protonix Inj) 40 mg IVP Q12 [facility] Last Admin: 01/30/18 09:23 Dose: 40 mg Sodium Bicarbonate (Sodium Bicarbonate Tab) 1,300 mg PO BID [facility] Last Admin: 01/30/18 17:35 Dose: 1,300 mg Tenofovir Disoproxil Fumarate (Viread) 300 mg PO MoFr [facility] PRN Reason: Protocol Vitamin B Complex/Vit C/Folic Acid (Nephro-Nadya) 1 tab PO 0800 [facility] Last Admin: 01/30/18 08:28 Dose: Not Given Zolpidem Tartrate (Ambien) 5 mg PO HS PRN PRN Reason: Insomnia Last Admin: 01/29/18 21:59 Dose: 5 mg - Labs Labs: 01/30/18 18:36 01/30/18 07:52 PT 12.2 SECONDS (9.7-12.2) 01/30/18 07:52 INR 1.1 01/30/18 07:52 APTT 29 SECONDS (21-34) 01/30/18 07:52 Assessment and Plan (1) Anemia Status: Acute (2) Epistaxis Status: Acute (3) HCV (hepatitis C virus) Status: Chronic (4) HIV (human immunodeficiency virus infection) Status: Chronic (5) Hyperkalemia Status: Acute (6) Renal insufficiency Status: Chronic
[2018-01-30] MEDS: EMTRICITABINE 200 MG CAP PO SCH (21:32)
[2018-01-30 22:19] LABS: SQUAMOUS EPITHIAL 1 /hpf (0-5); URINE BACTERIA MOD (<OCC); URINE BILIRUBIN NEGATIVE (NEGATIVE); URINE BLOOD 1+ (NEGATIVE); URINE CLARITY Hazy (Clear); URINE COLOR Yellow (YELLOW); URINE GLUCOSE (UA) 1+ mg/dL (Normal); URINE LEUKOCYTE ESTERASE 1+ Leu/uL (Negative); URINE PROTEIN 1+ mg/dL (NEGATIVE); URINE UROBILINOGEN NORMAL mg/dL (0.2-1.0)
--- NOTE | 2018-01-30 23:13 | CARD ---
APPROVED REPORT EKG Measurement Heart [id number] <Conclusion> Normal sinus rhythm Normal ECG
[2018-01-31] MEDS ORDERED: Morphine 4 MG/ML VIAL IV ONE (04:00)
[2018-01-31] MEDS: (Novolin R) Insulin Human Regular 100 units/ml vial SC SCH ×4 (08:28→21:54)
[2018-01-31] MEDS: Multivitamin Vitamin B Complex (Nephro-Vite) Tab PO SCH (09:09)
[2018-01-31] MEDS: Ferric Sodium Gluconat Complex 62.5 mg/5 ml Vial IVPB SCH (09:16)
[2018-01-31 09:51] VITALS: RESP 20
[2018-01-31] MEDS: RILPIVIRINE 25 MG PO SCH (11:11)
[2018-01-31 11:30] LABS: BASO # 0.1 K/uL (0.0-0.2); BASO % 0.8 % (0.0-2.0); EOS # 0.1 K/uL (0.0-0.7); EOS % 1.7 % (0.0-4.0); HEMOGLOBIN 9.4 g/dL (11.0-16.0); LYMPH # 1.6 K/uL (1.0-4.3); LYMPH % 22.7 % (20.0-40.0); MEAN CELL VOLUME 90.2 fL (81.0-99.0); MEAN CORPUSCULAR HEMOGLOBIN 31.7 pg (27.0-31.0); MEAN CORPUSCULAR HGB CONC 35.1 g/dL (33.0-37.0); MEAN PLATELET VOLUME 8.8 fL (7.2-11.7); MONO # 0.6 K/uL (0.0-0.8); MONO % 8.2 % (0.0-10.0); NEUT # 4.6 K/uL (1.8-7.0); NEUT % 66.6 % (50.0-75.0); NRBC % 0.4 % (0.0-2.0); RBC 2.98 Mil/uL (3.80-5.20); WHITE BLOOD COUNT 6.9 K/uL (4.8-10.8)
[2018-01-31 11:48] LABS: ALB/GLOB RATIO 0.9 (1.0-2.1); ALBUMIN 3.1 g/dL (3.5-5.0); CALCIUM 8.7 mg/dl (8.6-10.4)
--- NOTE | 2018-01-31 11:57 | CP.PCM.PN ---
Subjective - Date & Time of Evaluation Date of Evaluation: 01/31/18 Time of Evaluation: 11:54 - Subjective Subjective: COVERING DR BUITRAGO/RODNEY No bleeding, stomach feels empty. Only had one bite of breakfast. No bowel movement since EGD Objective - Vital Signs/Intake and Output Vital Signs (last 24 hours): Temp Pulse Resp BP Pulse Ox 98 F 89 20 150/80 99 01/31/18 08:00 01/31/18 08:00 01/31/18 08:00 01/31/18 09:19 01/31/18 08:00 Intake and Output: 01/31/18 01/31/18 06:59 18:59 Intake Total 425 Balance 425 - Medications Medications: Current Medications Emtricitabine (Emtriva) 200 mg PO MoFr [facility] PRN Reason: Protocol Last Admin: 01/30/18 21:32 Dose: 200 mg Epoetin Kemal (Procrit) 8,000 unit SC MWF [facility] Last Admin: 01/30/18 09:23 Dose: 8,000 unit Ferric Sodium Gluconate Complex (Ferrlecit) 125 mg IVPB DAILY [facility] Stop: 02/03/18 10:01 Last Admin: 01/31/18 09:16 Dose: 125 mg Furosemide (Lasix) 40 mg PO DAILY [facility] Last Admin: 01/31/18 09:19 Dose: 40 mg Home Med (Patient's Own Medication) 1 tab PO DAILY [facility] Last Admin: 01/31/18 11:11 Dose: 1 tab Insulin Glargine (Lantus) 20 unit SC HS [facility] Last Admin: 01/29/18 22:00 Dose: 20 units Insulin Human Regular (Novolin R) 0 unit SC ACHS [facility] PRN Reason: Protocol Last Admin: 01/31/18 08:28 Dose: Not Given Pantoprazole Sodium (Protonix Inj) 40 mg IVP Q12 [facility] Last Admin: 01/31/18 09:17 Dose: 40 mg Sodium Bicarbonate (Sodium Bicarbonate Tab) 1,300 mg PO BID [facility] Last Admin: 01/31/18 09:16 Dose: 1,300 mg Tenofovir Disoproxil Fumarate (Viread) 300 mg PO MoFr [facility] PRN Reason: Protocol Last Admin: 01/30/18 21:34 Dose: 300 mg Vitamin B Complex/Vit C/Folic Acid (Nephro-Nadya) 1 tab PO 0800 [facility] Last Admin: 01/31/18 09:09 Dose: 1 tab Zolpidem Tartrate (Ambien) 5 mg PO HS PRN PRN Reason: Insomnia Last Admin: 01/30/18 21:30 Dose: 5 mg - Labs Labs: 01/31/18 11:19 01/31/18 11:19 PT 12.2 SECONDS (9.7-12.2) 01/30/18 07:52 INR 1.1 01/30/18 07:52 APTT 29 SECONDS (21-34) 01/30/18 07:52 - Constitutional Appears: No Acute Distress - Head Exam Head Exam: ATRAUMATIC, NORMOCEPHALIC - Eye Exam Eye Exam: EOMI, PERRL - Respiratory Exam Respiratory Exam: NORMAL BREATHING PATTERN - Cardiovascular Exam Cardiovascular Exam: REGULAR RHYTHM - GI/Abdominal Exam GI & Abdominal Exam: Distended, Soft, Normal Bowel Sounds. absent: Tenderness, Mass, Organomegaly, Rebound - Extremities Exam Extremities Exam: Normal Inspection Assessment and Plan (1) GAVE (gastric antral vascular ectasia) Assessment & Plan: Clinically stable after EGD with APC of vascular lesions. Continue current therapy. Monitor for active bleeding. Repeat EGD per Dr Buitrago to assess need for further cautery. 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 Repeat labs in am Status: Acute (3) HCV (hepatitis C virus) Assessment & Plan: S/P SVR from [place] as per patient. Status: Chronic (4) HIV (human immunodeficiency virus infection) Assessment & Plan: As per Dr Lagunas Status: Chronic
--- NOTE | 2018-01-31 16:20 | CP.PCM.PN ---
Subjective - Date & Time of Evaluation Date of Evaluation: 01/31/18 Time of Evaluation: 16:18 - Subjective Subjective: Nephrology Consultation Note: Assessment: stable Acute Kidney Injury (N17.9) Anemia of acute blood loss likely GI blood loss. s/p EGD showed gastric AVMs hyperkalemia and metabolic acidosis Diabetic chronic Kidney Disease (E11.22) Hypertensive Chronic Kidney Disease (I12.9) Chronic Kidney Disease (N18.4) Stage 4 without proteinuria (R80.9) Anemia (D64.9), HTN (I12.9) chronic Hep C, HIV on HAART, overweight Plan No acute need for renal replacement therapy at this time Hypertension control with meds as ordered. Hold ACEI/ARB/aldactone due to PRO and hyperkalemia. started norvac 5 mg/day medical management of hyperkalemia as needed basis start sodium bicarb supplements 1300 mg bid. will also give IV iron and started epogen sc, MVI pt on PPI, s/p PRBC continue with lasix Monitor Input/Output, daily weights and renal function with basic metabolic panel Check urine analysis, spot protein/creatinine and albumin/creatinine ratio, renal sonogram. Check serum protein electrophoresis with immunofixation (as pt with hx of bence salazar proteinuria) Dose meds/antibiotics for reduced GFR. Avoid fleets enema/magnesium based laxatives. Avoid nephrotoxins/NSAIDs/ iodinated contrast (unless needed emergently) Glycemic control Further work up/management as per primary team she is stable from renal perspective for d/c when planned Thanks for allowing me to participate in care of your patient. Will follow patient with you. Please call if any Qs. had d/w team Dr Glen Pedro Office: [phone] Chief Complaint; none today HPI: Pt is a 62 F with hx of diabetes Mellitus (6 years), hypertension (6 years ) chronic Hep C, HIV on HAART and CKD stage 4 (f/up with Dr Castrejon) presented with complaints of feeling fatigue and tiredness x 1 week. also reports nasal bleed and dark stool x last few days. denies SOB. no nausea/vomitting. reports decreased appetite x 2 weeks. c/o mild leg swelling. denies bleeding from any other site Denies OTC/herbal meds or NSAIDs No recent iodinated contrast exposure. No obvious episodes of low BP. ROS: feels better Cardiovascular: No chest pain. Pulmonary: No shortness of breath Gastrointestinal: denies abdominal pain No nausea. No vomiting. Genitourinary: No pain while urinating. Denies blood in urine. All other negative except as in HPI Physical Examination: General Appearance: Comfortable, in no acute respiratory distress, co-operative . overweight Vitals reviewed and noted as below Head; Atraumatic, normocephalic ENT: no ulcers no thrush. Tongue is midline. Oropharynx: no rash or ulcers. EYES: Pupils are equal, round and reactive to light accommodation. Eye muscles and extraocular movement intact. Sclera is anicteric. Neck; supple no lymphadenopathy, no thyromegaly or bruit Lungs: Normal respiratory rate/effort. Breath sounds bilateral equal and clear Heart: Normal rate. s1s2 normal. No rub or gallop. Extremities: no edema. No varicose veins Neurological: Patient is alert, awake and oriented to person, place and time. No focal deficit. Strength bilateral appropriate and equal Skin: Warm and dry. Normal turgor. No rash. Palpitation: Normal elasticity for age Abdomen: Abdomen is soft. Bowel sounds +. There is no abdominal tenderness, no guarding/rigidity no organomegaly Psych: normal insight and normal affect/mood MSK: no joint tenderness or swelling. Digits and nails normal, no deformity : kidney or bladder not palpable Labs/imaging reviewed. Past medical history, past surgical history, family history, social history, allergy reviewed and noted as below Family hx: no hx of CKD. Rest non-contributory work up: 01/21/2018: PTH 43 Phos 3.2 Vit D 53 TSAT 16% ferritin 225 uric acid 6.2 a1c 6.8% LDL 49 Hb 9.5 plat 90 creatinine 3.1 Objective - Vital Signs/Intake and Output Vital Signs (last 24 hours): Temp Pulse Resp BP Pulse Ox 98.8 F 88 20 160/89 H 100 01/31/18 15:44 01/31/18 15:44 01/31/18 15:44 01/31/18 15:44 01/31/18 15:44 Intake and Output: 01/31/18 01/31/18 06:59 18:59 Intake Total 425 Balance 425 - Medications Medications: Current Medications Emtricitabine (Emtriva) 200 mg PO MoFr [facility] PRN Reason: Protocol Last Admin: 01/30/18 21:32 Dose: 200 mg Epoetin Kemal (Procrit) 8,000 unit SC MWF [facility] Last Admin: 01/30/18 09:23 Dose: 8,000 unit Ferric Sodium Gluconate Complex (Ferrlecit) 125 mg IVPB DAILY [facility] Stop: 02/03/18 10:01 Last Admin: 01/31/18 09:16 Dose: 125 mg Furosemide (Lasix) 40 mg PO DAILY [facility] Last Admin: 01/31/18 09:19 Dose: 40 mg Home Med (Patient's Own Medication) 1 tab PO DAILY [facility] Last Admin: 01/31/18 11:11 Dose: 1 tab Insulin Glargine (Lantus) 20 unit SC HS [facility] Last Admin: 01/29/18 22:00 Dose: 20 units Insulin Human Regular (Novolin R) 0 unit SC ACHS [facility] PRN Reason: Protocol Last Admin: 01/31/18 12:00 Dose: Not Given Pantoprazole Sodium (Protonix Inj) 40 mg IVP Q12 [facility] Last Admin: 01/31/18 09:17 Dose: 40 mg Sodium Bicarbonate (Sodium Bicarbonate Tab) 1,300 mg PO BID [facility] Last Admin: 01/31/18 09:16 Dose: 1,300 mg Tenofovir Disoproxil Fumarate (Viread) 300 mg PO MoFr [facility] PRN Reason: Protocol Last Admin: 01/30/18 21:34 Dose: 300 mg Vitamin B Complex/Vit C/Folic Acid (Nephro-Nadya) 1 tab PO 0800 [facility] Last Admin: 01/31/18 09:09 Dose: 1 tab Zolpidem Tartrate (Ambien) 5 mg PO HS PRN PRN Reason: Insomnia Last Admin: 01/30/18 21:30 Dose: 5 mg - Labs Labs: 01/31/18 11:19 01/31/18 11:19 PT 12.2 SECONDS (9.7-12.2) 01/30/18 07:52 INR 1.1 01/30/18 07:52 APTT 29 SECONDS (21-34) 01/30/18 07:52
--- NOTE | 2018-01-31 19:52 | CP.PCM.PN ---
Subjective - Date & Time of Evaluation Date of Evaluation: 01/30/18 Objective - Vital Signs/Intake and Output Vital Signs (last 24 hours): Temp Pulse Resp BP Pulse Ox 98.8 F 88 20 160/89 H 100 01/31/18 15:44 01/31/18 15:44 01/31/18 15:44 01/31/18 15:44 01/31/18 15:44 Intake and Output: 01/31/18 02/01/18 18:59 06:59 Intake Total 600 Balance 600 - Medications Medications: Current Medications Amlodipine Besylate (Norvasc) 5 mg PO DAILY [facility] Last Admin: 01/31/18 17:40 Dose: 5 mg Emtricitabine (Emtriva) 200 mg PO MoFr [facility] PRN Reason: Protocol Last Admin: 01/30/18 21:32 Dose: 200 mg Epoetin Kemal (Procrit) 8,000 unit SC MWF [facility] Last Admin: 01/30/18 09:23 Dose: 8,000 unit Ferric Sodium Gluconate Complex (Ferrlecit) 125 mg IVPB DAILY [facility] Stop: 02/03/18 10:01 Last Admin: 01/31/18 09:16 Dose: 125 mg Furosemide (Lasix) 40 mg PO DAILY [facility] Last Admin: 01/31/18 09:19 Dose: 40 mg Home Med (Patient's Own Medication) 1 tab PO DAILY [facility] Last Admin: 01/31/18 11:11 Dose: 1 tab Insulin Glargine (Lantus) 20 unit SC HS [facility] Last Admin: 01/29/18 22:00 Dose: 20 units Insulin Human Regular (Novolin R) 0 unit SC ACHS [facility] PRN Reason: Protocol Last Admin: 01/31/18 17:35 Dose: 3 unit Pantoprazole Sodium (Protonix Inj) 40 mg IVP Q12 [facility] Last Admin: 01/31/18 09:17 Dose: 40 mg Sodium Bicarbonate (Sodium Bicarbonate Tab) 1,300 mg PO BID [facility] Last Admin: 01/31/18 17:40 Dose: 1,300 mg Tenofovir Disoproxil Fumarate (Viread) 300 mg PO MoFr [facility] PRN Reason: Protocol Last Admin: 01/30/18 21:34 Dose: 300 mg Vitamin B Complex/Vit C/Folic Acid (Nephro-Nadya) 1 tab PO 0800 [facility] Last Admin: 01/31/18 09:09 Dose: 1 tab Zolpidem Tartrate (Ambien) 5 mg PO HS PRN PRN Reason: Insomnia Last Admin: 01/30/18 21:30 Dose: 5 mg - Labs Labs: 01/31/18 11:19 01/31/18 11:19 PT 12.2 SECONDS (9.7-12.2) 01/30/18 07:52 INR 1.1 01/30/18 07:52 APTT 29 SECONDS (21-34) 01/30/18 07:52
--- NOTE | 2018-01-31 19:53 | CP.PCM.PN ---
Subjective - Date & Time of Evaluation Date of Evaluation: 01/31/18 Objective - Vital Signs/Intake and Output Vital Signs (last 24 hours): Temp Pulse Resp BP Pulse Ox 98.8 F 88 20 160/89 H 100 01/31/18 15:44 01/31/18 15:44 01/31/18 15:44 01/31/18 15:44 01/31/18 15:44 Intake and Output: 01/31/18 02/01/18 18:59 06:59 Intake Total 600 Balance 600 - Medications Medications: Current Medications Amlodipine Besylate (Norvasc) 5 mg PO DAILY [facility] Last Admin: 01/31/18 17:40 Dose: 5 mg Emtricitabine (Emtriva) 200 mg PO MoFr [facility] PRN Reason: Protocol Last Admin: 01/30/18 21:32 Dose: 200 mg Epoetin Kemal (Procrit) 8,000 unit SC MWF [facility] Last Admin: 01/30/18 09:23 Dose: 8,000 unit Ferric Sodium Gluconate Complex (Ferrlecit) 125 mg IVPB DAILY [facility] Stop: 02/03/18 10:01 Last Admin: 01/31/18 09:16 Dose: 125 mg Furosemide (Lasix) 40 mg PO DAILY [facility] Last Admin: 01/31/18 09:19 Dose: 40 mg Home Med (Patient's Own Medication) 1 tab PO DAILY [facility] Last Admin: 01/31/18 11:11 Dose: 1 tab Insulin Glargine (Lantus) 20 unit SC HS [facility] Last Admin: 01/29/18 22:00 Dose: 20 units Insulin Human Regular (Novolin R) 0 unit SC ACHS [facility] PRN Reason: Protocol Last Admin: 01/31/18 17:35 Dose: 3 unit Pantoprazole Sodium (Protonix Inj) 40 mg IVP Q12 [facility] Last Admin: 01/31/18 09:17 Dose: 40 mg Sodium Bicarbonate (Sodium Bicarbonate Tab) 1,300 mg PO BID [facility] Last Admin: 01/31/18 17:40 Dose: 1,300 mg Tenofovir Disoproxil Fumarate (Viread) 300 mg PO MoFr [facility] PRN Reason: Protocol Last Admin: 01/30/18 21:34 Dose: 300 mg Vitamin B Complex/Vit C/Folic Acid (Nephro-Nadya) 1 tab PO 0800 [facility] Last Admin: 01/31/18 09:09 Dose: 1 tab Zolpidem Tartrate (Ambien) 5 mg PO HS PRN PRN Reason: Insomnia Last Admin: 01/30/18 21:30 Dose: 5 mg - Labs Labs: 01/31/18 11:19 01/31/18 11:19 PT 12.2 SECONDS (9.7-12.2) 01/30/18 07:52 INR 1.1 01/30/18 07:52 APTT 29 SECONDS (21-34) 01/30/18 07:52
[2018-01-31] MEDS: (Lantus) Insulin Glargine, Recombinant SC SCH (22:11)
[2018-02-01] MEDS: (Novolin R) Insulin Human Regular 100 units/ml vial SC SCH ×4 (07:38→21:54)
[2018-02-01] MEDS: Multivitamin Vitamin B Complex (Nephro-Vite) Tab PO SCH (08:07)
[2018-02-01 08:20] LABS: HEMOGLOBIN 10.4 g/dL (11.0-16.0); MEAN CELL VOLUME 89.5 fL (81.0-99.0); MEAN CORPUSCULAR HEMOGLOBIN 31.5 pg (27.0-31.0); MEAN CORPUSCULAR HGB CONC 35.2 g/dL (33.0-37.0); MEAN PLATELET VOLUME 8.6 fL (7.2-11.7); RBC 3.29 Mil/uL (3.80-5.20); RED CELL DISTRIBUTION WIDTH 14.9 % (11.5-14.5); WHITE BLOOD COUNT 8.6 K/uL (4.8-10.8)
[2018-02-01] MEDS ORDERED: Oxymetazoline 0.05% Nasal Spray (30 ml) NS ONE (09:21)
[2018-02-01] MEDS: Ferric Sodium Gluconat Complex 62.5 mg/5 ml Vial IVPB SCH (09:35)
[2018-02-01] MEDS: RILPIVIRINE 25 MG PO SCH (09:36)
--- NOTE | 2018-02-01 10:28 | CP.PCM.PN ---
Subjective - Date & Time of Evaluation Date of Evaluation: 02/01/18 Time of Evaluation: 10:24 - Subjective Subjective: COVERING DR BUITRAGO/RODNEY No bleeding or melena. No new c/o Hgb=10.4 Elevated ALT>AST noted. No h/o hepatitis known. Objective - Vital Signs/Intake and Output Vital Signs (last 24 hours): Temp Pulse Resp BP Pulse Ox 98.5 F 91 H 20 129/79 100 02/01/18 00:00 02/01/18 00:00 02/01/18 00:00 02/01/18 09:35 02/01/18 00:00 - Medications Medications: Current Medications Amlodipine Besylate (Norvasc) 5 mg PO DAILY [facility] Last Admin: 02/01/18 09:36 Dose: 5 mg Emtricitabine (Emtriva) 200 mg PO MoFr [facility] PRN Reason: Protocol Last Admin: 01/30/18 21:32 Dose: 200 mg Epoetin Kemal (Procrit) 8,000 unit SC MWF [facility] Last Admin: 01/30/18 09:23 Dose: 8,000 unit Ferric Sodium Gluconate Complex (Ferrlecit) 125 mg IVPB DAILY [facility] Stop: 02/03/18 10:01 Last Admin: 02/01/18 09:35 Dose: 125 mg Furosemide (Lasix) 40 mg PO DAILY [facility] Last Admin: 02/01/18 09:35 Dose: 40 mg Home Med (Patient's Own Medication) 1 tab PO DAILY [facility] Last Admin: 02/01/18 09:36 Dose: 1 tab Insulin Glargine (Lantus) 20 unit SC HS [facility] Last Admin: 01/31/18 22:11 Dose: 10 units Insulin Human Regular (Novolin R) 0 unit SC ACHS [facility] PRN Reason: Protocol Last Admin: 02/01/18 07:38 Dose: Not Given Pantoprazole Sodium (Protonix Inj) 40 mg IVP Q12 [facility] Last Admin: 02/01/18 09:34 Dose: 40 mg Sodium Bicarbonate (Sodium Bicarbonate Tab) 1,300 mg PO BID [facility] Last Admin: 02/01/18 09:35 Dose: 1,300 mg Tenofovir Disoproxil Fumarate (Viread) 300 mg PO MoFr [facility] PRN Reason: Protocol Last Admin: 01/30/18 21:34 Dose: 300 mg Vitamin B Complex/Vit C/Folic Acid (Nephro-Nadya) 1 tab PO 0800 [facility] Last Admin: 02/01/18 08:07 Dose: 1 tab Zolpidem Tartrate (Ambien) 5 mg PO HS PRN PRN Reason: Insomnia Last Admin: 01/31/18 22:05 Dose: 5 mg - Labs Labs: 02/01/18 08:18 01/31/18 11:19 PT 12.2 SECONDS (9.7-12.2) 01/30/18 07:52 INR 1.1 01/30/18 07:52 APTT 29 SECONDS (21-34) 01/30/18 07:52 - Constitutional Appears: No Acute Distress - Head Exam Head Exam: ATRAUMATIC, NORMOCEPHALIC - Respiratory Exam Respiratory Exam: NORMAL BREATHING PATTERN - Cardiovascular Exam Cardiovascular Exam: REGULAR RHYTHM - GI/Abdominal Exam GI & Abdominal Exam: Soft, Normal Bowel Sounds. absent: Distended, Tenderness, Mass, Organomegaly, Rebound - Extremities Exam Extremities Exam: Normal Inspection Assessment and Plan (1) GAVE (gastric antral vascular ectasia) Assessment & Plan: H/H stable post endoscopic therapy on friday. 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 ? related to HIV meds , HIV hepatopathy, NAFLD/JOSHI? Sono showed GB stones and increase echogenicity on 01/29. Markers as ordered. Repeat LFTs in am. Status: Acute (6) Gallstones Assessment & Plan: Gallstones noted on Sonogram done earlier this admission with heterogenous liver parenchyma but no ductal dilatation of [place] sign. No RUQ pain. Status: Acute
[2018-02-01 14:36] LABS: HEPATITIS B SURFACE AG Negative (NEGATIVE)
[2018-02-01 14:41] LABS: HEPATITIS B CORE AB NEGATIVE (NEGATIVE)
[2018-02-01 15:58] LABS: HEPATITIS C ANTIBODY REACTIVE (NEGATIVE)
--- NOTE | 2018-02-01 17:10 | CP.PCM.PN ---
Subjective - Date & Time of Evaluation Date of Evaluation: 02/01/18 Time of Evaluation: 17:10 - Subjective Subjective: Nephrology Consultation Note: Assessment: stable Acute Kidney Injury (N17.9) Anemia of acute blood loss likely GI blood loss. s/p EGD showed gastric AVMs hyperkalemia and metabolic acidosis Diabetic chronic Kidney Disease (E11.22) Hypertensive Chronic Kidney Disease (I12.9) Chronic Kidney Disease (N18.4) Stage 4 without proteinuria (R80.9) Anemia (D64.9), HTN (I12.9) chronic Hep C, HIV on HAART, overweight Plan No acute need for renal replacement therapy at this time Hypertension control with meds as ordered. Hold ACEI/ARB/aldactone due to PRO and hyperkalemia. started norvac 5 mg/day medical management of hyperkalemia as needed basis start sodium bicarb supplements 1300 mg bid. will also give IV iron and started epogen sc, MVI pt on PPI, s/p PRBC continue with lasix Monitor Input/Output, daily weights and renal function with basic metabolic panel Check urine analysis, spot protein/creatinine and albumin/creatinine ratio, renal sonogram. Check serum protein electrophoresis with immunofixation (as pt with hx of bence salazar proteinuria) Dose meds/antibiotics for reduced GFR. Avoid fleets enema/magnesium based laxatives. Avoid nephrotoxins/NSAIDs/ iodinated contrast (unless needed emergently) Glycemic control Further work up/management as per primary team she is stable from renal perspective for d/c when planned Thanks for allowing me to participate in care of your patient. Will follow patient with you. Please call if any Qs. had d/w team Dr Glen Pedro Office: [phone] Chief Complaint; none today HPI: Pt is a 62 F with hx of diabetes Mellitus (6 years), hypertension (6 years ) chronic Hep C, HIV on HAART and CKD stage 4 (f/up with Dr Castrejon) presented with complaints of feeling fatigue and tiredness x 1 week. also reports nasal bleed and dark stool x last few days. denies SOB. no nausea/vomitting. reports decreased appetite x 2 weeks. c/o mild leg swelling. denies bleeding from any other site Denies OTC/herbal meds or NSAIDs No recent iodinated contrast exposure. No obvious episodes of low BP. ROS: feels better Cardiovascular: No chest pain. Pulmonary: No shortness of breath Gastrointestinal: denies abdominal pain No nausea. No vomiting. Genitourinary: No pain while urinating. Denies blood in urine. All other negative except as in HPI Physical Examination: General Appearance: Comfortable, in no acute respiratory distress, co-operative . overweight Vitals reviewed and noted as below Head; Atraumatic, normocephalic ENT: no ulcers no thrush. Tongue is midline. Oropharynx: no rash or ulcers. EYES: Pupils are equal, round and reactive to light accommodation. Eye muscles and extraocular movement intact. Sclera is anicteric. Neck; supple no lymphadenopathy, no thyromegaly or bruit Lungs: Normal respiratory rate/effort. Breath sounds bilateral equal and clear Heart: Normal rate. s1s2 normal. No rub or gallop. Extremities: no edema. No varicose veins Neurological: Patient is alert, awake and oriented to person, place and time. No focal deficit. Strength bilateral appropriate and equal Skin: Warm and dry. Normal turgor. No rash. Palpitation: Normal elasticity for age Abdomen: Abdomen is soft. Bowel sounds +. There is no abdominal tenderness, no guarding/rigidity no organomegaly Psych: normal insight and normal affect/mood MSK: no joint tenderness or swelling. Digits and nails normal, no deformity : kidney or bladder not palpable Labs/imaging reviewed. Past medical history, past surgical history, family history, social history, allergy reviewed and noted as below Family hx: no hx of CKD. Rest non-contributory work up: 01/21/2018: PTH 43 Phos 3.2 Vit D 53 TSAT 16% ferritin 225 uric acid 6.2 a1c 6.8% LDL 49 Hb 9.5 plat 90 creatinine 3.1 Objective - Vital Signs/Intake and Output Vital Signs (last 24 hours): Temp Pulse Resp BP Pulse Ox 98.5 F 88 20 114/73 100 02/01/18 15:00 02/01/18 15:00 02/01/18 15:00 02/01/18 15:00 02/01/18 15:00 - Medications Medications: Current Medications Amlodipine Besylate (Norvasc) 5 mg PO DAILY [facility] Last Admin: 02/01/18 09:36 Dose: 5 mg Emtricitabine (Emtriva) 200 mg PO MoFr [facility] PRN Reason: Protocol Last Admin: 01/30/18 21:32 Dose: 200 mg Epoetin Kemal (Procrit) 8,000 unit SC MWF [facility] Last Admin: 01/30/18 09:23 Dose: 8,000 unit Ferric Sodium Gluconate Complex (Ferrlecit) 125 mg IVPB DAILY [facility] Stop: 02/03/18 10:01 Last Admin: 02/01/18 09:35 Dose: 125 mg Furosemide (Lasix) 40 mg PO DAILY [facility] Last Admin: 02/01/18 09:35 Dose: 40 mg Home Med (Patient's Own Medication) 1 tab PO DAILY [facility] Last Admin: 02/01/18 09:36 Dose: 1 tab Insulin Glargine (Lantus) 20 unit SC HS [facility] Last Admin: 01/31/18 22:11 Dose: 10 units Insulin Human Regular (Novolin R) 0 unit SC ACHS [facility] PRN Reason: Protocol Last Admin: 02/01/18 16:59 Dose: Not Given Pantoprazole Sodium (Protonix Inj) 40 mg IVP Q12 [facility] Last Admin: 02/01/18 09:34 Dose: 40 mg Sodium Bicarbonate (Sodium Bicarbonate Tab) 1,300 mg PO BID [facility] Last Admin: 02/01/18 09:35 Dose: 1,300 mg Tenofovir Disoproxil Fumarate (Viread) 300 mg PO MoFr [facility] PRN Reason: Protocol Last Admin: 01/30/18 21:34 Dose: 300 mg Vitamin B Complex/Vit C/Folic Acid (Nephro-Nadya) 1 tab PO 0800 [facility] Last Admin: 02/01/18 08:07 Dose: 1 tab Zolpidem Tartrate (Ambien) 5 mg PO HS PRN PRN Reason: Insomnia Last Admin: 01/31/18 22:05 Dose: 5 mg - Labs Labs: 02/01/18 08:18 01/31/18 11:19 PT 12.2 SECONDS (9.7-12.2) 01/30/18 07:52 INR 1.1 01/30/18 07:52 APTT 29 SECONDS (21-34) 01/30/18 07:52
[2018-02-02 07:14] LABS: ALB/GLOB RATIO 0.9 (1.0-2.1); ALBUMIN 3.1 g/dL (3.5-5.0); BILIRUBIN,DIRECT 0.5 mg/dL (0.0-0.4)
[2018-02-02] MEDS: (Novolin R) Insulin Human Regular 100 units/ml vial SC SCH ×4 (08:01→21:52)
[2018-02-02] MEDS: Multivitamin Vitamin B Complex (Nephro-Vite) Tab PO SCH (08:01)
[2018-02-02] MEDS: Ferric Sodium Gluconat Complex 62.5 mg/5 ml Vial IVPB SCH (11:28)
[2018-02-02] MEDS: Epoetin Alfa 4000 UNIT/ML Inj SC SCH (11:45)
[2018-02-02] MEDS: RILPIVIRINE 25 MG PO SCH (11:45)
--- NOTE | 2018-02-02 15:28 | CP.PCM.PN ---
Subjective - Date & Time of Evaluation Date of Evaluation: 02/02/18 Time of Evaluation: 15:27 - Subjective Subjective: Nephrology Consultation Note: Assessment: stable Acute Kidney Injury (N17.9) Anemia of acute blood loss likely GI blood loss. s/p EGD showed gastric AVMs hyperkalemia and metabolic acidosis Diabetic chronic Kidney Disease (E11.22) Hypertensive Chronic Kidney Disease (I12.9) Chronic Kidney Disease (N18.4) Stage 4 without proteinuria (R80.9) Anemia (D64.9), HTN (I12.9) chronic Hep C, HIV on HAART, overweight Plan No acute need for renal replacement therapy at this time Hypertension control with meds as ordered. Hold ACEI/ARB/aldactone due to PRO and hyperkalemia. started norvac 5 mg/day medical management of hyperkalemia as needed basis start sodium bicarb supplements 1300 mg bid. will also give IV iron and started epogen sc, MVI pt on PPI, s/p PRBC continue with lasix Monitor Input/Output, daily weights and renal function with basic metabolic panel treatment of possible UTI as per iD Check urine analysis, spot protein/creatinine and albumin/creatinine ratio, renal sonogram. Check serum protein electrophoresis with immunofixation (as pt with hx of bence salazar proteinuria) Dose meds/antibiotics for reduced GFR. Avoid fleets enema/magnesium based laxatives. Avoid nephrotoxins/NSAIDs/ iodinated contrast (unless needed emergently) Glycemic control Further work up/management as per primary team she is stable from renal perspective for d/c when planned Thanks for allowing me to participate in care of your patient. Will follow patient with you. Please call if any Qs. had d/w team Dr Glen Pedro Office: [phone] Chief Complaint; none today HPI: Pt is a 62 F with hx of diabetes Mellitus (6 years), hypertension (6 years ) chronic Hep C, HIV on HAART and CKD stage 4 (f/up with Dr Castrejon) presented with complaints of feeling fatigue and tiredness x 1 week. also reports nasal bleed and dark stool x last few days. denies SOB. no nausea/vomitting. reports decreased appetite x 2 weeks. c/o mild leg swelling. denies bleeding from any other site Denies OTC/herbal meds or NSAIDs No recent iodinated contrast exposure. No obvious episodes of low BP. ROS: feels better Cardiovascular: No chest pain. Pulmonary: No shortness of breath Gastrointestinal: denies abdominal pain No nausea. No vomiting. Genitourinary: No pain while urinating. Denies blood in urine. All other negative except as in HPI Physical Examination: General Appearance: Comfortable, in no acute respiratory distress, co-operative . overweight Vitals reviewed and noted as below Head; Atraumatic, normocephalic ENT: no ulcers no thrush. Tongue is midline. Oropharynx: no rash or ulcers. EYES: Pupils are equal, round and reactive to light accommodation. Eye muscles and extraocular movement intact. Sclera is anicteric. Neck; supple no lymphadenopathy, no thyromegaly or bruit Lungs: Normal respiratory rate/effort. Breath sounds bilateral equal and clear Heart: Normal rate. s1s2 normal. No rub or gallop. Extremities: no edema. No varicose veins Neurological: Patient is alert, awake and oriented to person, place and time. No focal deficit. Strength bilateral appropriate and equal Skin: Warm and dry. Normal turgor. No rash. Palpitation: Normal elasticity for age Abdomen: Abdomen is soft. Bowel sounds +. There is no abdominal tenderness, no guarding/rigidity no organomegaly Psych: normal insight and normal affect/mood MSK: no joint tenderness or swelling. Digits and nails normal, no deformity : kidney or bladder not palpable Labs/imaging reviewed. Past medical history, past surgical history, family history, social history, allergy reviewed and noted as below Family hx: no hx of CKD. Rest non-contributory work up: 01/21/2018: PTH 43 Phos 3.2 Vit D 53 TSAT 16% ferritin 225 uric acid 6.2 a1c 6.8% LDL 49 Hb 9.5 plat 90 creatinine 3.1 Objective - Vital Signs/Intake and Output Vital Signs (last 24 hours): Temp Pulse Resp BP Pulse Ox 97.7 F 84 20 123/75 98 02/02/18 07:55 02/02/18 07:55 02/02/18 07:55 02/02/18 07:55 02/02/18 07:55 Intake and Output: 02/02/18 02/02/18 06:59 18:59 Intake Total 480 Balance 480 - Medications Medications: Current Medications Amlodipine Besylate (Norvasc) 5 mg PO DAILY [facility] Last Admin: 02/02/18 11:30 Dose: 5 mg Emtricitabine (Emtriva) 200 mg PO MoFr [facility] PRN Reason: Protocol Last Admin: 01/30/18 21:32 Dose: 200 mg Epoetin Kemal (Procrit) 8,000 unit SC MWF [facility] Last Admin: 02/02/18 11:45 Dose: 8,000 unit Ferric Sodium Gluconate Complex (Ferrlecit) 125 mg IVPB DAILY [facility] Stop: 02/03/18 10:01 Last Admin: 02/02/18 11:28 Dose: 125 mg Furosemide (Lasix) 40 mg PO DAILY [facility] Home Med (Patient's Own Medication) 1 tab PO DAILY [facility] Last Admin: 02/02/18 11:45 Dose: 1 tab Insulin Human Regular (Novolin R) 0 unit SC ACHS [facility] PRN Reason: Protocol Last Admin: 02/02/18 12:40 Dose: 1 unit Pantoprazole Sodium (Protonix Inj) 40 mg IVP Q12 [facility] Last Admin: 02/02/18 11:30 Dose: 40 mg Sodium Bicarbonate (Sodium Bicarbonate Tab) 1,300 mg PO BID [facility] Last Admin: 02/02/18 11:28 Dose: 1,300 mg Tenofovir Disoproxil Fumarate (Viread) 300 mg PO MoFr [facility] PRN Reason: Protocol Last Admin: 01/30/18 21:34 Dose: 300 mg Vitamin B Complex/Vit C/Folic Acid (Nephro-Nadya) 1 tab PO 0800 [facility] Last Admin: 02/02/18 08:01 Dose: 1 tab Zolpidem Tartrate (Ambien) 5 mg PO HS PRN PRN Reason: Insomnia Last Admin: 02/01/18 22:06 Dose: 5 mg - Labs Labs: 02/01/18 08:18 01/31/18 11:19 PT 12.2 SECONDS (9.7-12.2) 01/30/18 07:52 INR 1.1 01/30/18 07:52 APTT 29 SECONDS (21-34) 01/30/18 07:52
--- NOTE | 2018-02-02 15:38 | CP.PCM.PN ---
Subjective - Date & Time of Evaluation Date of Evaluation: 02/02/18 Time of Evaluation: 15:35 - Subjective Subjective: pt notes epigastric discomfort, unrelated to meals. On Protonix. Hgb Stable S/P APC treatment of gastric vascular ectasias Renal consult monitoring renal status Objective - Vital Signs/Intake and Output Vital Signs (last 24 hours): Temp Pulse Resp BP Pulse Ox 97.7 F 84 20 123/75 98 02/02/18 07:55 02/02/18 07:55 02/02/18 07:55 02/02/18 07:55 02/02/18 07:55 Intake and Output: 02/02/18 02/02/18 06:59 18:59 Intake Total 480 Balance 480 - Medications Medications: Current Medications Amlodipine Besylate (Norvasc) 5 mg PO DAILY [facility] Last Admin: 02/02/18 11:30 Dose: 5 mg Emtricitabine (Emtriva) 200 mg PO MoFr [facility] PRN Reason: Protocol Last Admin: 01/30/18 21:32 Dose: 200 mg Epoetin Kemal (Procrit) 8,000 unit SC MWF [facility] Last Admin: 02/02/18 11:45 Dose: 8,000 unit Ferric Sodium Gluconate Complex (Ferrlecit) 125 mg IVPB DAILY [facility] Stop: 02/03/18 10:01 Last Admin: 02/02/18 11:28 Dose: 125 mg Furosemide (Lasix) 40 mg PO DAILY [facility] Home Med (Patient's Own Medication) 1 tab PO DAILY [facility] Last Admin: 02/02/18 11:45 Dose: 1 tab Insulin Human Regular (Novolin R) 0 unit SC ACHS [facility] PRN Reason: Protocol Last Admin: 02/02/18 12:40 Dose: 1 unit Pantoprazole Sodium (Protonix Inj) 40 mg IVP Q12 [facility] Last Admin: 02/02/18 11:30 Dose: 40 mg Sodium Bicarbonate (Sodium Bicarbonate Tab) 1,300 mg PO BID [facility] Last Admin: 02/02/18 11:28 Dose: 1,300 mg Tenofovir Disoproxil Fumarate (Viread) 300 mg PO MoFr [facility] PRN Reason: Protocol Last Admin: 01/30/18 21:34 Dose: 300 mg Vitamin B Complex/Vit C/Folic Acid (Nephro-Nadya) 1 tab PO 0800 [facility] Last Admin: 02/02/18 08:01 Dose: 1 tab Zolpidem Tartrate (Ambien) 5 mg PO HS PRN PRN Reason: Insomnia Last Admin: 02/01/18 22:06 Dose: 5 mg - Labs Labs: 02/01/18 08:18 01/31/18 11:19 PT 12.2 SECONDS (9.7-12.2) 01/30/18 07:52 INR 1.1 01/30/18 07:52 APTT 29 SECONDS (21-34) 01/30/18 07:52 - Constitutional Appears: Well, No Acute Distress - Head Exam Head Exam: NORMOCEPHALIC - Eye Exam Eye Exam: absent: Scleral icterus - Respiratory Exam Respiratory Exam: Clear to Ausculation Bilateral - Cardiovascular Exam Cardiovascular Exam: REGULAR RHYTHM - GI/Abdominal Exam GI & Abdominal Exam: Soft. absent: Guarding, Tenderness Assessment and Plan (1) Abnormal transaminases Assessment & Plan: chronic HCV and likely JOSHI Status: Acute (2) Epistaxis Status: Acute (3) GAVE (gastric antral vascular ectasia) Assessment & Plan: Hgb stable after endoscopic treatment Status: Acute (4) Gallstones Assessment & Plan: stable, asymptomatic Status: Acute (5) Iron deficiency anemia secondary to blood loss (chronic) Assessment & Plan: trasnfused. Monitor Status: Acute (6) HCV (hepatitis C virus) Assessment & Plan: refuses treatment Status: Chronic (7) HIV (human immunodeficiency virus infection) Status: Chronic (8) Renal insufficiency Status: Chronic
[2018-02-02 18:38] LABS: ALPHA-1-GLOBULIN (PEP) 0.3 g/dL (0.2-0.3)
[2018-02-02] MEDS: EMTRICITABINE 200 MG CAP PO SCH (21:19)
[2018-02-03] MEDS: (Novolin R) Insulin Human Regular 100 units/ml vial SC SCH ×4 (07:34→22:53)
[2018-02-03] MEDS: Multivitamin Vitamin B Complex (Nephro-Vite) Tab PO SCH (07:45)
--- NOTE | 2018-02-03 08:23 | CP.PCM.PN ---
Subjective - Date & Time of Evaluation Date of Evaluation: 02/03/18 Time of Evaluation: 08:15 - Subjective Subjective: f/u anemia Reports dec appetite. Denies melena, RB, diarrhea, PENA, cough. SZ, LOC, CP, SOB Objective - Vital Signs/Intake and Output Vital Signs (last 24 hours): Temp Pulse Resp BP Pulse Ox 98.4 F 84 20 140/85 100 02/02/18 23:18 02/02/18 23:18 02/02/18 23:18 02/03/18 06:12 02/02/18 23:18 Intake and Output: 02/03/18 02/03/18 06:59 18:59 Intake Total 450 Balance 450 - Medications Medications: Current Medications Amlodipine Besylate (Norvasc) 5 mg PO DAILY [facility] Last Admin: 02/02/18 11:30 Dose: 5 mg Emtricitabine (Emtriva) 200 mg PO MoFr [facility] PRN Reason: Protocol Last Admin: 02/02/18 21:19 Dose: 200 mg Epoetin Kemal (Procrit) 8,000 unit SC MWF [facility] Last Admin: 02/02/18 11:45 Dose: 8,000 unit Ferric Sodium Gluconate Complex (Ferrlecit) 125 mg IVPB DAILY [facility] Stop: 02/03/18 10:01 Last Admin: 02/02/18 11:28 Dose: 125 mg Furosemide (Lasix) 40 mg PO DAILY [facility] Last Admin: 02/03/18 06:12 Dose: 40 mg Home Med (Patient's Own Medication) 1 tab PO DAILY [facility] Last Admin: 02/02/18 11:45 Dose: 1 tab Insulin Human Regular (Novolin R) 0 unit SC ACHS [facility] PRN Reason: Protocol Last Admin: 02/03/18 07:34 Dose: Not Given Pantoprazole Sodium (Protonix Inj) 40 mg IVP Q12 [facility] Last Admin: 02/02/18 21:21 Dose: 40 mg Sodium Bicarbonate (Sodium Bicarbonate Tab) 1,300 mg PO BID [facility] Last Admin: 02/02/18 17:26 Dose: 1,300 mg Tenofovir Disoproxil Fumarate (Viread) 300 mg PO MoFr [facility] PRN Reason: Protocol Last Admin: 02/02/18 21:18 Dose: 300 mg Vitamin B Complex/Vit C/Folic Acid (Nephro-Nadya) 1 tab PO 0800 [facility] Last Admin: 02/03/18 07:45 Dose: 1 tab Zolpidem Tartrate (Ambien) 5 mg PO HS PRN PRN Reason: Insomnia Last Admin: 02/02/18 22:49 Dose: 5 mg - Labs Labs: 02/01/18 08:18 01/31/18 11:19 PT 12.2 SECONDS (9.7-12.2) 01/30/18 07:52 INR 1.1 01/30/18 07:52 APTT 29 SECONDS (21-34) 01/30/18 07:52 - Constitutional Appears: Well - Respiratory Exam Respiratory Exam: Clear to Ausculation Bilateral - Cardiovascular Exam Cardiovascular Exam: REGULAR RHYTHM - GI/Abdominal Exam GI & Abdominal Exam: Soft, Normal Bowel Sounds. absent: Tenderness, Mass - Neurological Exam Neurological Exam: Alert, Oriented x3 Assessment and Plan (1) HCV (hepatitis C virus) Status: Chronic (2) Epistaxis Status: Acute (3) Rectal bleeding Status: Acute (4) Constipation Status: Acute (5) Anemia Assessment & Plan: fe def. s/p cauter AVM at EGD Status: Acute (6) Hyperkalemia Status: Acute (7) Abnormal transaminases Status: Acute (8) GAVE (gastric antral vascular ectasia) Status: Acute (9) Gallstones Status: Acute
[2018-02-03] MEDS: RILPIVIRINE 25 MG PO SCH (09:48)
[2018-02-03] MEDS: Ferric Sodium Gluconat Complex 62.5 mg/5 ml Vial IVPB SCH (09:49)
--- NOTE | 2018-02-03 10:41 | CP.PCM.PN ---
Subjective - Date & Time of Evaluation Date of Evaluation: 02/03/18 Time of Evaluation: 10:39 - Subjective Subjective: Nephrology Consultation Note: Assessment: stable Acute Kidney Injury (N17.9) Anemia of acute blood loss likely GI blood loss. s/p EGD showed gastric AVMs hyperkalemia and metabolic acidosis Diabetic chronic Kidney Disease (E11.22) Hypertensive Chronic Kidney Disease (I12.9) Chronic Kidney Disease (N18.4) Stage 4 without proteinuria (R80.9) Anemia (D64.9), HTN (I12.9) chronic Hep C, HIV on HAART, overweight Plan No acute need for renal replacement therapy at this time Hypertension control with meds as ordered. Hold ACEI/ARB/aldactone due to PRO and hyperkalemia. started norvac 5 mg/day medical management of hyperkalemia as needed basis start sodium bicarb supplements 1300 mg bid. will also give IV iron and started epogen sc, MVI pt on PPI, s/p PRBC continue with lasix Monitor Input/Output, daily weights and renal function with basic metabolic panel treatment of possible UTI as per iD Dose meds/antibiotics for reduced GFR. Avoid fleets enema/magnesium based laxatives. Avoid nephrotoxins/NSAIDs/ iodinated contrast (unless needed emergently) Glycemic control Further work up/management as per primary team she is stable from renal perspective for d/c when planned. pt was advised to f/ up in renal clinic within 1 week post d/c Thanks for allowing me to participate in care of your patient. Will follow patient with you. Please call if any Qs. had d/w team Dr Glen Pedro Office: [phone] Chief Complaint; none today HPI: Pt is a 62 F with hx of diabetes Mellitus (6 years), hypertension (6 years ) chronic Hep C, HIV on HAART and CKD stage 4 (f/up with Dr Castrejon) presented with complaints of feeling fatigue and tiredness x 1 week. also reports nasal bleed and dark stool x last few days. denies SOB. no nausea/vomitting. reports decreased appetite x 2 weeks. c/o mild leg swelling. denies bleeding from any other site Denies OTC/herbal meds or NSAIDs No recent iodinated contrast exposure. No obvious episodes of low BP. ROS: feels better Cardiovascular: No chest pain. Pulmonary: No shortness of breath Gastrointestinal: denies abdominal pain No nausea. No vomiting. Genitourinary: No pain while urinating. Denies blood in urine. All other negative except as in HPI Physical Examination: General Appearance: Comfortable, in no acute respiratory distress, co-operative . overweight Vitals reviewed and noted as below Head; Atraumatic, normocephalic ENT: no ulcers no thrush. Tongue is midline. Oropharynx: no rash or ulcers. EYES: Pupils are equal, round and reactive to light accommodation. Eye muscles and extraocular movement intact. Sclera is anicteric. Neck; supple no lymphadenopathy, no thyromegaly or bruit Lungs: Normal respiratory rate/effort. Breath sounds bilateral equal and clear Heart: Normal rate. s1s2 normal. No rub or gallop. Extremities: no edema. No varicose veins Neurological: Patient is alert, awake and oriented to person, place and time. No focal deficit. Strength bilateral appropriate and equal Skin: Warm and dry. Normal turgor. No rash. Palpitation: Normal elasticity for age Abdomen: Abdomen is soft. Bowel sounds +. There is no abdominal tenderness, no guarding/rigidity no organomegaly Psych: normal insight and normal affect/mood MSK: no joint tenderness or swelling. Digits and nails normal, no deformity : kidney or bladder not palpable Labs/imaging reviewed. Past medical history, past surgical history, family history, social history, allergy reviewed and noted as below Family hx: no hx of CKD. Rest non-contributory work up: 01/21/2018: PTH 43 Phos 3.2 Vit D 53 TSAT 16% ferritin 225 uric acid 6.2 a1c 6.8% LDL 49 Hb 9.5 plat 90 creatinine 3.1 Objective - Vital Signs/Intake and Output Vital Signs (last 24 hours): Temp Pulse Resp BP Pulse Ox 97.8 F 89 20 134/77 100 02/03/18 08:22 02/03/18 08:22 02/03/18 08:22 02/03/18 08:22 02/03/18 08:22 Intake and Output: 02/03/18 02/03/18 06:59 18:59 Intake Total 450 Balance 450 - Medications Medications: Current Medications Amlodipine Besylate (Norvasc) 5 mg PO DAILY [facility] Last Admin: 02/03/18 09:47 Dose: 5 mg Emtricitabine (Emtriva) 200 mg PO MoFr [facility] PRN Reason: Protocol Last Admin: 02/02/18 21:19 Dose: 200 mg Epoetin Kemal (Procrit) 8,000 unit SC MWF [facility] Last Admin: 02/02/18 11:45 Dose: 8,000 unit Furosemide (Lasix) 40 mg PO DAILY [facility] Last Admin: 02/03/18 09:50 Dose: Not Given Home Med (Patient's Own Medication) 1 tab PO DAILY [facility] Last Admin: 02/03/18 09:48 Dose: 1 tab Insulin Human Regular (Novolin R) 0 unit SC ACHS [facility] PRN Reason: Protocol Last Admin: 02/03/18 07:34 Dose: Not Given Pantoprazole Sodium (Protonix Inj) 40 mg IVP Q12 [facility] Last Admin: 02/03/18 09:49 Dose: 40 mg Sodium Bicarbonate (Sodium Bicarbonate Tab) 1,300 mg PO BID [facility] Last Admin: 02/03/18 09:48 Dose: 1,300 mg Tenofovir Disoproxil Fumarate (Viread) 300 mg PO MoFr [facility] PRN Reason: Protocol Last Admin: 02/02/18 21:18 Dose: 300 mg Vitamin B Complex/Vit C/Folic Acid (Nephro-Nadya) 1 tab PO 0800 [facility] Last Admin: 02/03/18 07:45 Dose: 1 tab Zolpidem Tartrate (Ambien) 5 mg PO HS PRN PRN Reason: Insomnia Last Admin: 02/02/18 22:49 Dose: 5 mg - Labs Labs: 02/01/18 08:18 01/31/18 11:19 PT 12.2 SECONDS (9.7-12.2) 01/30/18 07:52 INR 1.1 01/30/18 07:52 APTT 29 SECONDS (21-34) 01/30/18 07:52
--- NOTE | 2018-02-03 19:40 | CP.PCM.PN ---
Subjective - Date & Time of Evaluation Date of Evaluation: 02/01/18 Time of Evaluation: 19:39 Objective - Vital Signs/Intake and Output Vital Signs (last 24 hours): Temp Pulse Resp BP Pulse Ox 97.2 F L 79 20 122/77 99 02/03/18 15:00 02/03/18 15:00 02/03/18 15:00 02/03/18 15:00 02/03/18 15:00 - Medications Medications: Current Medications Amlodipine Besylate (Norvasc) 5 mg PO DAILY [facility] Last Admin: 02/03/18 09:47 Dose: 5 mg Emtricitabine (Emtriva) 200 mg PO MoFr [facility] PRN Reason: Protocol Last Admin: 02/02/18 21:19 Dose: 200 mg Epoetin Kemal (Procrit) 8,000 unit SC MWF [facility] Last Admin: 02/02/18 11:45 Dose: 8,000 unit Furosemide (Lasix) 40 mg PO DAILY [facility] Last Admin: 02/03/18 09:50 Dose: Not Given Home Med (Patient's Own Medication) 1 tab PO DAILY [facility] Last Admin: 02/03/18 09:48 Dose: 1 tab Insulin Human Regular (Novolin R) 0 unit SC ACHS [facility] PRN Reason: Protocol Last Admin: 02/03/18 11:56 Dose: 2 unit Pantoprazole Sodium (Protonix Inj) 40 mg IVP Q12 [facility] Last Admin: 02/03/18 09:49 Dose: 40 mg Sodium Bicarbonate (Sodium Bicarbonate Tab) 1,300 mg PO BID [facility] Last Admin: 02/03/18 17:45 Dose: 1,300 mg Tenofovir Disoproxil Fumarate (Viread) 300 mg PO MoFr [facility] PRN Reason: Protocol Last Admin: 02/02/18 21:18 Dose: 300 mg Vitamin B Complex/Vit C/Folic Acid (Nephro-Nadya) 1 tab PO 0800 [facility] Last Admin: 02/03/18 07:45 Dose: 1 tab Zolpidem Tartrate (Ambien) 5 mg PO HS PRN PRN Reason: Insomnia Last Admin: 02/02/18 22:49 Dose: 5 mg - Labs Labs: 02/01/18 08:18 01/31/18 11:19 PT 12.2 SECONDS (9.7-12.2) 01/30/18 07:52 INR 1.1 01/30/18 07:52 APTT 29 SECONDS (21-34) 01/30/18 07:52
--- NOTE | 2018-02-03 19:40 | CP.PCM.PN ---
Subjective - Date & Time of Evaluation Date of Evaluation: 02/02/18 Objective - Vital Signs/Intake and Output Vital Signs (last 24 hours): Temp Pulse Resp BP Pulse Ox 97.2 F L 79 20 122/77 99 02/03/18 15:00 02/03/18 15:00 02/03/18 15:00 02/03/18 15:00 02/03/18 15:00 - Medications Medications: Current Medications Amlodipine Besylate (Norvasc) 5 mg PO DAILY [facility] Last Admin: 02/03/18 09:47 Dose: 5 mg Emtricitabine (Emtriva) 200 mg PO MoFr [facility] PRN Reason: Protocol Last Admin: 02/02/18 21:19 Dose: 200 mg Epoetin Kemal (Procrit) 8,000 unit SC MWF [facility] Last Admin: 02/02/18 11:45 Dose: 8,000 unit Furosemide (Lasix) 40 mg PO DAILY [facility] Last Admin: 02/03/18 09:50 Dose: Not Given Home Med (Patient's Own Medication) 1 tab PO DAILY [facility] Last Admin: 02/03/18 09:48 Dose: 1 tab Insulin Human Regular (Novolin R) 0 unit SC ACHS [facility] PRN Reason: Protocol Last Admin: 02/03/18 11:56 Dose: 2 unit Pantoprazole Sodium (Protonix Inj) 40 mg IVP Q12 [facility] Last Admin: 02/03/18 09:49 Dose: 40 mg Sodium Bicarbonate (Sodium Bicarbonate Tab) 1,300 mg PO BID [facility] Last Admin: 02/03/18 17:45 Dose: 1,300 mg Tenofovir Disoproxil Fumarate (Viread) 300 mg PO MoFr [facility] PRN Reason: Protocol Last Admin: 02/02/18 21:18 Dose: 300 mg Vitamin B Complex/Vit C/Folic Acid (Nephro-Nadya) 1 tab PO 0800 [facility] Last Admin: 02/03/18 07:45 Dose: 1 tab Zolpidem Tartrate (Ambien) 5 mg PO HS PRN PRN Reason: Insomnia Last Admin: 02/02/18 22:49 Dose: 5 mg - Labs Labs: 02/01/18 08:18 01/31/18 11:19 PT 12.2 SECONDS (9.7-12.2) 01/30/18 07:52 INR 1.1 01/30/18 07:52 APTT 29 SECONDS (21-34) 01/30/18 07:52
--- NOTE | 2018-02-03 19:41 | CP.PCM.PN ---
Subjective - Date & Time of Evaluation Date of Evaluation: 02/03/18 Time of Evaluation: 19:40 - Subjective Subjective: Patient was seen by ENT specialist today. I spoke to the ENT. No active bleeding noted. Patient is clinical stable Objective - Vital Signs/Intake and Output Vital Signs (last 24 hours): Temp Pulse Resp BP Pulse Ox 97.2 F L 79 20 122/77 99 02/03/18 15:00 02/03/18 15:00 02/03/18 15:00 02/03/18 15:00 02/03/18 15:00 Intake and Output: Chest good air entry bilaterally irregular heart so nontender abdomen no pedal edema - Medications Medications: Current Medications Amlodipine Besylate (Norvasc) 5 mg PO DAILY [facility] Last Admin: 02/03/18 09:47 Dose: 5 mg Emtricitabine (Emtriva) 200 mg PO MoFr [facility] PRN Reason: Protocol Last Admin: 02/02/18 21:19 Dose: 200 mg Epoetin Kemal (Procrit) 8,000 unit SC MWF [facility] Last Admin: 02/02/18 11:45 Dose: 8,000 unit Furosemide (Lasix) 40 mg PO DAILY [facility] Last Admin: 02/03/18 09:50 Dose: Not Given Home Med (Patient's Own Medication) 1 tab PO DAILY [facility] Last Admin: 02/03/18 09:48 Dose: 1 tab Insulin Human Regular (Novolin R) 0 unit SC ACHS [facility] PRN Reason: Protocol Last Admin: 02/03/18 11:56 Dose: 2 unit Pantoprazole Sodium (Protonix Inj) 40 mg IVP Q12 [facility] Last Admin: 02/03/18 09:49 Dose: 40 mg Sodium Bicarbonate (Sodium Bicarbonate Tab) 1,300 mg PO BID [facility] Last Admin: 02/03/18 17:45 Dose: 1,300 mg Tenofovir Disoproxil Fumarate (Viread) 300 mg PO MoFr [facility] PRN Reason: Protocol Last Admin: 02/02/18 21:18 Dose: 300 mg Vitamin B Complex/Vit C/Folic Acid (Nephro-Nadya) 1 tab PO 0800 [facility] Last Admin: 02/03/18 07:45 Dose: 1 tab Zolpidem Tartrate (Ambien) 5 mg PO HS PRN PRN Reason: Insomnia Last Admin: 02/02/18 22:49 Dose: 5 mg - Labs Labs: 05/06/18 08:18 01/31/18 11:19 PT 12.2 SECONDS (9.7-12.2) 01/30/18 07:52 INR 1.1 01/30/18 07:52 APTT 29 SECONDS (21-34) 01/30/18 07:52 Assessment and Plan (1) Hyperkalemia Assessment & Plan: Patient with renal insufficiency, chronic. GI bleed. Angiodysplasia of the stomach. Currently on PPI. We'll closely monitor the H&H. Epistaxis stable. Possibly will discharge the patient tomorrow home. Patient is considering for AV fistula, which can be done as an outpatient. Discussed with the flat folder. Status: Acute (2) Iron deficiency anemia secondary to blood loss (chronic) Status: Acute (3) Rectal bleeding Status: Acute (4) HCV (hepatitis C virus) Status: Chronic (5) HIV (human immunodeficiency virus infection) Status: Chronic
--- NOTE | 2018-02-03 21:05 | CON ---
DATE: 02/03/2018 REASON FOR CONSULTATION: Epistaxis, left. HISTORY OF PRESENT ILLNESS: This is a 62-year-old female with a 2-week history of epistaxis on the left on and off, moderate in intensity. The blood is coming from the front, very small amounts from the back and the throat. There is no nasal congestion, no nasal pain. PAST MEDICAL HISTORY: As noted in the chart by me. MEDICATIONS: As noted in the chart by me. ALLERGIES: NO KNOWN DRUG ALLERGIES. PHYSICAL EXAMINATION: HEAD: Atraumatic, normocephalic. FACE: Good facial movements bilaterally. CONSTITUTIONAL: Well fed, well nourished. COMMUNICATION: Communicates well and appropriately. EXTERNAL NOSE AND EARS: No masses. No lesions. No erythema. No edema. INTERNAL NOSE: Deviated septum. No masses. No lesions. No erythema. No edema. Possible bleeding spot on the left anterior septum. ORAL CAVITY AND OROPHARYNX: No bloody postnasal drip. No masses. No lesions. No erythema. No edema. LIPS AND GUMS: No masses. No lesions. No erythema. No edema. NECK: Supple. THYROID: No thyromegaly, no goiter. LYMPHS: No lymphadenopathy of the neck. ASSESSMENT: 1. Epistaxis, left. 2. Deviated septum. PLAN: Upon discharge, the patient is to follow up in the office and I will cauterize the septum, since the patient has not bled in one week. We will recommend bacitracin and saline for now. Gamaliel Sheriff MD
[2018-02-04 07:29] LABS: BASO % 0.8 % (0.0-2.0); EOS # 0.1 K/uL (0.0-0.7); EOS % 2.1 % (0.0-4.0); HEMOGLOBIN 9.3 g/dL (11.0-16.0); LYMPH # 1.3 K/uL (1.0-4.3); LYMPH % 22.9 % (20.0-40.0); MEAN CELL VOLUME 91.4 fL (81.0-99.0); MEAN CORPUSCULAR HEMOGLOBIN 32.3 pg (27.0-31.0); MEAN CORPUSCULAR HGB CONC 35.3 g/dL (33.0-37.0); MEAN PLATELET VOLUME 8.9 fL (7.2-11.7); MONO # 0.5 K/uL (0.0-0.8); MONO % 9.3 % (0.0-10.0); NEUT # 3.7 K/uL (1.8-7.0); NEUT % 64.9 % (50.0-75.0); NRBC % 0.4 % (0.0-2.0); RBC 2.88 Mil/uL (3.80-5.20); RED CELL DISTRIBUTION WIDTH 15.7 % (11.5-14.5); WHITE BLOOD COUNT 5.7 K/uL (4.8-10.8)
[2018-02-04 07:40] VITALS: BP 116/69; PULSE 76; TEMP 97.9; O2SAT 98
[2018-02-04 08:10] LABS: CALCIUM 8.6 mg/dl (8.6-10.4)
[2018-02-04] MEDS: Multivitamin Vitamin B Complex (Nephro-Vite) Tab PO SCH (10:56)
[2018-02-04] MEDS: (Novolin R) Insulin Human Regular 100 units/ml vial SC SCH (10:57)
[2018-02-04] MEDS: RILPIVIRINE 25 MG PO SCH (10:57)
[2018-02-04] MEDS: Epoetin Alfa 4000 UNIT/ML Inj SC SCH (11:26)
--- NOTE | 2018-02-04 15:33 | CP.PCM.PN ---
Subjective - Date & Time of Evaluation Date of Evaluation: 02/04/18 Time of Evaluation: 14:30 - Subjective Subjective: Nephrology Consultation Note: Assessment: stable Acute Kidney Injury (N17.9) Anemia of acute blood loss likely GI blood loss. s/p EGD showed gastric AVMs hyperkalemia and metabolic acidosis Diabetic chronic Kidney Disease (E11.22) Hypertensive Chronic Kidney Disease (I12.9) Chronic Kidney Disease (N18.4) Stage 4 without proteinuria (R80.9) Anemia (D64.9), HTN (I12.9) chronic Hep C, HIV on HAART, overweight Plan No acute need for renal replacement therapy at this time Hypertension control with meds as ordered. Hold ACEI/ARB/aldactone due to PRO and hyperkalemia. started norvac 5 mg/day medical management of hyperkalemia as needed basis start sodium bicarb supplements 1300 mg bid. will also give IV iron and started epogen sc, MVI pt on PPI, s/p PRBC continue with lasix Monitor Input/Output, daily weights and renal function with basic metabolic panel treatment of possible UTI as per iD Dose meds/antibiotics for reduced GFR. Avoid fleets enema/magnesium based laxatives. Avoid nephrotoxins/NSAIDs/ iodinated contrast (unless needed emergently) Glycemic control Further work up/management as per primary team she is stable from renal perspective for d/c when planned. pt was advised to f/ up in renal clinic within 1 week post d/c Thanks for allowing me to participate in care of your patient. Will follow patient with you. Please call if any Qs. had d/w team Dr Glen Perdo Office: [phone] Chief Complaint; none today HPI: Pt is a 62 F with hx of diabetes Mellitus (6 years), hypertension (6 years ) chronic Hep C, HIV on HAART and CKD stage 4 (f/up with Dr Castrejon) presented with complaints of feeling fatigue and tiredness x 1 week. also reports nasal bleed and dark stool x last few days. denies SOB. no nausea/vomitting. reports decreased appetite x 2 weeks. c/o mild leg swelling. denies bleeding from any other site Denies OTC/herbal meds or NSAIDs No recent iodinated contrast exposure. No obvious episodes of low BP. ROS: feels better Cardiovascular: No chest pain. Pulmonary: No shortness of breath Gastrointestinal: denies abdominal pain No nausea. No vomiting. Genitourinary: No pain while urinating. Denies blood in urine. All other negative except as in HPI Physical Examination: General Appearance: Comfortable, in no acute respiratory distress, co-operative . overweight Vitals reviewed and noted as below Head; Atraumatic, normocephalic ENT: no ulcers no thrush. Tongue is midline. Oropharynx: no rash or ulcers. EYES: Pupils are equal, round and reactive to light accommodation. Eye muscles and extraocular movement intact. Sclera is anicteric. Neck; supple no lymphadenopathy, no thyromegaly or bruit Lungs: Normal respiratory rate/effort. Breath sounds bilateral equal and clear Heart: Normal rate. s1s2 normal. No rub or gallop. Extremities: no edema. No varicose veins Neurological: Patient is alert, awake and oriented to person, place and time. No focal deficit. Strength bilateral appropriate and equal Skin: Warm and dry. Normal turgor. No rash. Palpitation: Normal elasticity for age Abdomen: Abdomen is soft. Bowel sounds +. There is no abdominal tenderness, no guarding/rigidity no organomegaly Psych: normal insight and normal affect/mood MSK: no joint tenderness or swelling. Digits and nails normal, no deformity : kidney or bladder not palpable Labs/imaging reviewed. Past medical history, past surgical history, family history, social history, allergy reviewed and noted as below Family hx: no hx of CKD. Rest non-contributory work up: 01/21/2018: PTH 43 Phos 3.2 Vit D 53 TSAT 16% ferritin 225 uric acid 6.2 a1c 6.8% LDL 49 Hb 9.5 plat 90 creatinine 3.1 Objective - Vital Signs/Intake and Output Vital Signs (last 24 hours): Temp Pulse Resp BP Pulse Ox 97.9 F 76 20 116/69 98 02/04/18 07:38 02/04/18 07:38 02/04/18 07:38 02/04/18 10:56 02/04/18 07:38 Intake and Output: 02/04/18 02/04/18 06:59 18:59 Intake Total 250 450 Balance 250 450 - Labs Labs: 02/04/18 07:00 02/04/18 07:00 PT 12.2 SECONDS (9.7-12.2) 01/30/18 07:52 INR 1.1 01/30/18 07:52 APTT 29 SECONDS (21-34) 01/30/18 07:52
--- NOTE | 2018-02-04 16:06 | CP.PCM.PN ---
Subjective - Date & Time of Evaluation Date of Evaluation: 02/04/18 Time of Evaluation: 11:00 - Subjective Subjective: Alert, orientedx3, no sob or pain, NAD. Objective - Vital Signs/Intake and Output Vital Signs (last 24 hours): Temp Pulse Resp BP Pulse Ox 97.9 F 76 20 116/69 98 02/04/18 07:38 02/04/18 07:38 02/04/18 07:38 02/04/18 10:56 02/04/18 07:38 Intake and Output: 02/04/18 02/04/18 06:59 18:59 Intake Total 250 450 Balance 250 450 - Labs Labs: 02/04/18 07:00 02/04/18 07:00 PT 12.2 SECONDS (9.7-12.2) 01/30/18 07:52 INR 1.1 01/30/18 07:52 APTT 29 SECONDS (21-34) 01/30/18 07:52 Assessment and Plan - Assessment and Plan (Free Text) Assessment: Patient admitted with hyperkalemia and severe anemia, seen and examined. Alert and orientex3, labs reviewed, stable condition. Denies abdominal pain, sob or chest pains. Discussed with DR Escobar, plan to discharge home today. Cipro 500mg po daily x5 days for UTI, amlodipine given, spironolactone is dicontinued due to hyperkalemia. She will continue her HIV meds and follow up with PMD in 1 week
--- NOTE | 2018-02-19 09:06 | DS ---
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 The patient was closely monitored. She underwent periodic monitoring by supervisor dry paste as well as fire marshal. The patient received blood transfusion as per the order by GI. She underwent also upper endoscopy by supervisor dry paste, which was showing possible AV malformation. Cauterization was done. The patient clinically became stable. She had at least one episode of epistaxis during the stay, mild, controlled well with medications. Clinically, the patient is stable. She will be discharged home. She will follow up as an outpatient to receive and to monitoring the CBC. Nephrology followup. ENT followup. FINAL DIAGNOSES: Gastrointestinal bleed, acute, status post hemorrhagic anemia associated with chronic renal insufficiency, status post transfusion, human immunodeficiency virus, renal failure, diabetes, hypertension, hypercholesterolemia, chronic liver disease, hepatitis C. Roz Escobar MD
== END 2018-02-04 15:27 | disposition home or self-care (01) | DRG 377 ==
LOC: C.ER 08:23 → C.9E 09:32 → C.3T 10:26
PROVIDERS: ADMIT Internal Medicine; ATTEND Internal Medicine
PROC: 0DB98ZX Excision of Duodenum, Via Natural or Artificial Opening Endoscopic, Diagnostic (ICD-10-PCS; 2018-01-30)
PROC: 0DB68ZX Excision of Stomach, Via Natural or Artificial Opening Endoscopic, Diagnostic (ICD-10-PCS; 2018-01-30)
PROC: 02HV33Z Insertion of Infusion Device into Superior Vena Cava, Percutaneous Approach (ICD-10-PCS; 2018-01-30)
PROC: B548ZZA Ultrasonography of Superior Vena Cava, Guidance (ICD-10-PCS; 2018-01-30)
PROC: 30233N1 Transfusion of Nonautologous Red Blood Cells into Peripheral Vein, Percutaneous Approach (ICD-10-PCS; 2018-01-30)
PROC: 0D568ZZ Destruction of Stomach, Via Natural or Artificial Opening Endoscopic (ICD-10-PCS; principal; 2018-01-30 10:30)
DX: K92.2 Gastrointestinal hemorrhage, unspecified (principal); B20 Human immunodeficiency virus [HIV] disease; D62 Acute posthemorrhagic anemia; N17.9 Acute kidney failure, unspecified; N39.0 Urinary tract infection, site not specified; E87.2 Acidosis; N18.4 Chronic kidney disease, stage 4 (severe); K31.819 Angiodysplasia of stomach and duodenum without bleeding; B18.2 Chronic viral hepatitis C; E11.22 Type 2 diabetes mellitus with diabetic chronic kidney disease; I12.9 Hypertensive chronic kidney disease with stage 1 through stage 4 chronic kidney disease, or unspecified chronic kidney disease; R04.0 Epistaxis; E87.5 Hyperkalemia; K29.50 Unspecified chronic gastritis without bleeding; K59.09 Other constipation; R42 Dizziness and giddiness; R63.0 Anorexia; J34.2 Deviated nasal septum; E66.3 Overweight; Z79.899 Other long term (current) drug therapy; Z79.4 Long term (current) use of insulin

== ENCOUNTER 2018-04-29 08:30 | Day surgery (SDC) | payer BC ==
[2018-04-27 08:52] VITALS: BMI 29.0
[2018-04-29 09:38] VITALS: O2SAT 100
[2018-04-29] MEDS ORDERED: Propofol 10 mg/ml Inj (20 ML) ONE (12:09)
[2018-04-29] MEDS ORDERED: Midazolam 2 MG/2 ML VIAL ONE (12:10)
[2018-04-29] MEDS ORDERED: Sodium Chloride 0.9% 500 ML IV ONE ×2 (12:10→14:00)
[2018-04-29] MEDS ORDERED: ceFAZolin 1 gm in NS 0 GM/0 ML BAG IVPB ONE (12:12)
[2018-04-29] MEDS ORDERED: HEPARIN-NS 5,000 UNITS/500 ML 5,000 UNIT/500 ML BAG IV ONE (12:12)
[2018-04-29] MEDS ORDERED: ceFAZolin IV 2 gm in Dextrose 2 GM/50 ML BAG IVPB ONE (12:29)
[2018-04-29] MEDS ORDERED: HYDROmorphone 0.5 mg/0.5 ml ISec IVP PRN ×2 (14:12→14:16)
--- NOTE | 2018-04-29 14:18 | PCM.SURG1 ---
Surgeon's Initial Post Op Note - Surgeon's Notes Surgeon: Dr. Becker Toy Painter: Dr. Badillo PGY-4 Type of Anesthesia: General LMA Pre-Operative Diagnosis: Renal failure requiring dialysis Operative Findings: palpable thrill Post-Operative Diagnosis: Renal failure requiring dialysis Operation Performed: Left brachial-brachial AV Fistula Specimen/Specimens Removed: none Estimated Blood Loss: EBL {In ML}: 15 Blood Products Given: N/A Drains Used: No Drains Post-Op Condition: Good Date of Surgery/Procedure: 04/29/18 Time of Surgery/Procedure: 14:17
[2018-04-29] MEDS ORDERED: Oxycodone/Acetaminophen 5/325 mg Tab PO ONE (15:31)
[2018-04-29 15:42] VITALS: BP 141/76; PULSE 91; RESP 16; TEMP 97.5
--- NOTE | 2018-04-30 02:14 | OP ---
Copied To: Walter Becker Jr., MD Attending MD: Walter Becker Jr., MD PROCEDURE DATE: 04/29/2018 PREOPERATIVE DIAGNOSIS: Renal failure. POSTOPERATIVE DIAGNOSIS: Renal failure. PROCEDURE CARRIED OUT: Brachio-brachial fistula, left elbow. SURGEON: Walter Becker Jr., MD LAST CLEANER: Ruth Ann Badillo DO ANESTHESIA: General. ANESTHESIOLOGIST: Etelvina Worrell CRNA INDICATIONS: This is a 63-year-old woman with remote history of HIV positivity, hepatitis C, intravenous drug abuse, now she is requiring dialysis. OPERATIVE FINDINGS: At the end of the procedure, we had a good flow to the fistula, and we had a palpable pulse of the wrist. The major problem is that the patient has no visible surface veins. The basilic vein was poorly developed, and the brachial vein was the only vein of any substantial size in the arm. Because fistula, we will reevaluate this in 4 to 6 weeks to see if this can be mobilized for use. If not, the patient will require prosthetic shunt. ESTIMATED BLOOD LOSS: 10 mL. DESCRIPTION OF PROCEDURE: The patient was given general anesthesia and intravenous antibiotics. Using ultrasound, we marked out the visible vein on the arm. We then created a [id number] fistula with the distal portion being ligated to allow for unidirectional flow of the brachial vein. This was carried down using loupe magnification and heparin anticoagulation. After completion of the anastomosis, we had palpable pulse of the wrist and good flow to the fistula. The wound was then closed with 5-0 nylon sutures. OPERATION CARRIED OUT: Brachio-brachial fistula, left arm. Walter Becker Jr., MD cc: Roz Escobar MD
== END 2018-04-29 16:44 | disposition home or self-care (01) ==
LOC: C.SDS 08:30
PROVIDERS: ATTEND Surgery Vascular Surgery
DX: N18.6 End stage renal disease (principal); Z99.2 Dependence on renal dialysis; Z21 Asymptomatic human immunodeficiency virus [HIV] infection status
CPT/HCPCS: 36821; 82948; J0690; J1644; J2250; J2704; J3010; J7030; J7040

== ENCOUNTER 2018-07-13 06:07 | Day surgery (SDC) | payer BC ==
[2018-07-08 10:29] VITALS: BMI 29.2
[2018-07-13] MEDS ORDERED: HEPARIN-NS 5,000 UNITS/500 ML 5,000 UNIT/500 ML BAG IV ONE (06:55)
[2018-07-13] MEDS ORDERED: ceFAZolin 1 gm FROZEN Premix 2 GM/100 ML ML IVPB ONE (07:02)
[2018-07-13] MEDS ORDERED: Midazolam 2 MG/2 ML VIAL ONE (08:10)
[2018-07-13] MEDS ORDERED: Propofol 10 mg/ml Inj (20 ML) ONE (08:10)
[2018-07-13] MEDS ORDERED: Iohexol 240 200 ML ONE (10:41)
--- NOTE | 2018-07-13 11:09 | PCM.SURG1 ---
Surgeon's Initial Post Op Note - Surgeon's Notes Surgeon: Eugenio Director Of Student Affairs: Frances Sanchez Type of Anesthesia: General LMA Anesthesia Administered By: KARLO Pre-Operative Diagnosis: ESRD Operative Findings: poor bruit, thril, small AV fistula on the LEFT, dopplerable distal leftradial and ulnar artery Post-Operative Diagnosis: ESRD Operation Performed: Left AV fistula revision with bovine graft and angiogram Specimen/Specimens Removed: none Estimated Blood Loss: EBL {In ML}: 30 Blood Products Given: N/A Drains Used: No Drains Post-Op Condition: Good Date of Surgery/Procedure: 07/13/18 Time of Surgery/Procedure: 08:00
[2018-07-13] MEDS ORDERED: Oxycodone/Acetaminophen 5/325 mg Tab PO PRN (11:12)
[2018-07-13] MEDS: HYDROmorphone 0.5 mg/0.5 ml ISec IVP PRN ×2 (11:20→11:30)
[2018-07-13 13:19] VITALS: RESP 16
--- NOTE | 2018-07-13 14:50 | RAD ---
Date of service: 07/13/2018 PROCEDURE: Intraoperative Fluoroscopy. HISTORY: END-STAGE RENAL FAILURE FINDINGS: Fluoroscopic assistance was provided for left arm fistulogram. Please refer to the operative report from BHUPENDRA Narvaez. Total fluoroscopic time (continuous mode) utilized during the procedure 42.8 (seconds). Total exam DLP: 1.81 (mGy).
[2018-07-13 16:10] VITALS: BP 172/70; PULSE 85; TEMP 97.7; O2SAT 97
--- NOTE | 2018-07-13 22:32 | OP ---
PROCEDURE DATE: 07/13/2018 PREOPERATIVE DIAGNOSIS: Immature fistula, left arm. POSTOPERATIVE DIAGNOSIS: Immature fistula, left arm. PROCEDURE CARRIED OUT: Revision of AV fistula, left arm; placement of bovine graft; intraoperative arteriogram and clipping of arterial anastomosis of bovine graft. SURGEON: Walter Becker Jr., MD BUSHING AND BROACH OPERATOR: Dr. Frances Sanchez. ANESTHESIA ADMINISTERED BY: Mr. Lee. INDICATIONS: The patient is a middle-aged woman with multiple problems who required dialysis. She had creation of AV fistula in her left arm which has an audible thrill, but on ultrasound examination, does not show good development of the vessels and was frankly said to be occluded. OPERATIVE FINDINGS: Prior to the operation, the patient has a weakly palpable pulse at the wrist. After the operation, we had difficulty hearing it or palpating it. Because of this, we carried out an arteriogram which showed that there were no technical defects at the anastomosis of either the arterial or venous site, and It showed that there was flow into the forearm. Subsequent to this, we applied a 2 mm clip adjacent to the arterial anastomosis to narrow the arterial anastomosis down. At the completion of the procedure, we had an excellent Doppler flow in the radial artery, less so in the ulnar artery and we have pulse oximetry tracings in the finger. DESCRIPTION OF PROCEDURE: The patient was given general anesthesia intravenous antibiotics. The arm was prepped and draped with Betadine. A dissection was made, dissecting out adjacent to the arterial anastomosis. At this point, it was clear that no veins had developed. We then dissected out the basilic vein towards the axilla. We created a subcutaneous tunnel and inserted a bovine 6 mm graft carrying out the venous anastomosis first after giving heparin. After we did this, we then brought it through a tunneled anastomosis to the arterial side. All these parts went well. However, at the end of this, we found that we had diminished flow into the hand, so we carried out an angiogram, we compressed it, we did after a while as the blood pressure increased the profusion into the hand and angiogram did not show any patent fistula that I could identify, and it did show that there were no technical defects and that the vessels were open at least in the proximal portion of the arm. At this point, we closed the wounds with clips and nylon sutures. Blood loss was 30 mL. Operation carried out is revision of AV fistula placed under bovine graft, intraoperative arteriogram, and clipping of arterial anastomosis. Walter Becker Jr., MD
== END 2018-07-13 14:00 | disposition home or self-care (01) ==
LOC: C.SDS 06:07
PROVIDERS: ATTEND Surgery Vascular Surgery
DX: N18.6 End stage renal disease (principal); Z99.2 Dependence on renal dialysis
CPT/HCPCS: 36832; 36901; 82948; C1768; J0690; J1170; J1644; J2250; J2704; J3010; J7030; J7040

== ENCOUNTER 2018-07-17 12:03 | Day surgery (SDC) | payer BC ==
[2018-07-08 10:28] VITALS: BMI 29.2
[2018-07-17 14:07] LABS: CALCIUM 9.3 mg/dl (8.6-10.4)
[2018-07-17] MEDS ORDERED: ceFAZolin 1 gm in NS 2 GM/200 ML BAG IVPB ONE (16:03)
[2018-07-17] MEDS ORDERED: HEPARIN-NS 5,000 UNITS/500 ML 5,000 UNIT/500 ML BAG IV ONE (16:03)
[2018-07-17] MEDS ORDERED: Propofol 10 mg/ml Inj (20 ML) ONE (16:07)
[2018-07-17] MEDS ORDERED: HYDROmorphone 0.5 mg/0.5 ml ISec IVP PRN (17:30)
[2018-07-17] MEDS ORDERED: Oxycodone/Acetaminophen 5/325 mg Tab PO PRN (17:32)
--- NOTE | 2018-07-17 17:36 | PCM.SURG1 ---
Surgeon's Initial Post Op Note - Surgeon's Notes Surgeon: Dr Becker Double Head Machine Operator: Lisa Arango, PYG2; Eldon Lozada OMS4 Pre-Operative Diagnosis: STEAL syndrome left AVF Operative Findings: graft intact, increased doppler radial pulse with compr ession of graft, radial pulse palpable after application of clips to the side of the graft Post-Operative Diagnosis: same Operation Performed: revision of left AV fistula Specimen/Specimens Removed: none Estimated Blood Loss: EBL {In ML}: 0 Blood Products Given: N/A Drains Used: No Drains Post-Op Condition: Fair Date of Surgery/Procedure: 07/17/18 Time of Surgery/Procedure: 16:20
[2018-07-17 18:47] VITALS: BP 166/68; RESP 13
[2018-07-17 20:12] VITALS: PULSE 79; TEMP 98; O2SAT 98
--- NOTE | 2018-07-18 01:56 | OP ---
PROCEDURE DATE: 07/17/2018 PREOPERATIVE DIAGNOSIS: Steal syndrome, left hand. POSTOPERATIVE DIAGNOSIS: Steal syndrome, left hand. PROCEDURE CARRIED OUT: Revision of arteriovenous fistula left arm. SURGEON: Walter Becker Jr., MD TRAVELING PLANT OPERATOR: Dr. Arango. TYPE OF ANESTHESIA: General at the patient's request. ANESTHESIA ADMINISTERED BY: Dr. Stanton. DESCRIPTION OF PROCEDURE: A 63-year-old woman who underwent placement of a shunt, last Friday, 3 days ago. She has had increasing pain in her hand, numbness, coldness. There was a diminished pulse with good Doppler signals at the wrist. At the time of the previous operation, we carried out an angiogram showing that there was no intrinsic defect or thrombus at the arterial anastomosis. Shunt is working fine, has a brisk bruit. However, see the attached the pulse oximetry tracings to the fingers. In the operating room, there is still pulsatile flow. We then reclipped the arterial anastomosis with a larger clip, encompassing about half the lumen of the vessel in attempt to restrict flow into the shunt and increase flow into the hand. There is also much stronger Doppler signal and weakly palpable pulse at the wrist. Because of this, we terminated the procedure. We did not ligate the shunt completely. Blood loss for the procedure was 1 mL. Operation carried out is revision of AV fistula with clipping of arterial anastomosis. Walter Becker Jr., MD [place]
== END 2018-07-17 19:30 | disposition home or self-care (01) ==
LOC: C.SDS 12:03
PROVIDERS: ATTEND Surgery Vascular Surgery
DX: N18.6 End stage renal disease (principal); T82.898A Other specified complication of vascular prosthetic devices, implants and grafts, initial encounter
CPT/HCPCS: 36415; 36832; 80048; J0690; J1170; J2001; J2704; J3010

== ENCOUNTER 2018-07-22 06:52 | Day surgery (SDC) | payer BC ==
[2018-07-08 10:28] VITALS: BMI 29.2
[~2018-07-22 06:52] MED LIST: HEPARIN-NS 5,000 UNITS/500 ML 0 UNIT/0 ML BAG IV ONE
[2018-07-22] MEDS ORDERED: ceFAZolin 1 gm FROZEN Premix 2 GM/100 ML ML IVPB ONE (07:45)
[2018-07-22] MEDS ORDERED: Propofol 10 mg/ml Inj (20 ML) ONE (07:54)
[2018-07-22] MEDS ORDERED: Midazolam 2 MG/2 ML VIAL ONE (07:54)
[2018-07-22 08:22] LABS: CALCIUM 8.7 mg/dl (8.6-10.4)
[2018-07-22] MEDS ORDERED: Neostigmine Methylsulfate 3mg/3ml Syringe IV ONE (09:19)
--- NOTE | 2018-07-22 09:35 | PCM.SURG1 ---
Surgeon's Initial Post Op Note - Surgeon's Notes Surgeon: ward Medical Assistant Secretary: 0 Type of Anesthesia: General Endo Anesthesia Administered By: kelli Pre-Operative Diagnosis: steal syndrome Operative Findings: shunt removed Post-Operative Diagnosis: same Operation Performed: removal left arm shunt Specimen/Specimens Removed: old shunt Estimated Blood Loss: EBL {In ML}: 50 Blood Products Given: N/A Drains Used: No Drains Post-Op Condition: Good Date of Surgery/Procedure: 07/22/18 Time of Surgery/Procedure: 09:35
[2018-07-22] MEDS ORDERED: HYDROmorphone 1 mg/ml ISec IVP PRN (09:39)
[2018-07-22 11:43] VITALS: RESP 16
[2018-07-22 13:25] VITALS: BP 161/61; PULSE 71; TEMP 97.9; O2SAT 100
--- NOTE | 2018-07-22 21:41 | OP ---
PROCEDURE DATE: 07/22/2018 PREOPERATIVE DIAGNOSIS: Steal syndrome, left hand. POSTOPERATIVE DIAGNOSIS: Steal syndrome, left hand. PROCEDURE CARRIED OUT: Removal of atrioventricular shunt, left arm. SURGEON: Walter Becker Jr., MD. ASSISTANTS: None. ANESTHESIOLOGIST: Dwayne Jamison CRNA. ANESTHESIA: General anesthesia. INDICATIONS: A 63-year-old woman with renal insufficiency, HIV, variety of other medical problems who initially had created a fistula in the left arm, which we attempted to revise and at the time of revision placed a bovine graft. This worked quite well and had excellent flow. Postoperatively, there was some diminution of flow and last we took the patient back to the operating room for revision of this by clipping when narrowing the stent. This resulted in much improved perfusion of the hand on the basis of pulse oximetry tracings and Doppler signals at the wrist. Nonetheless, the patient continued to complain of pain in hand and numbness. It should be noted that after the first operation, she complained of some pain and numbness and that time had no evidence of malperfusion of the hand. I explained to her that this is a condition that would likely improve as we had objective evidence of improvement. Nonetheless she requested that the shunt be removed. In addition, the other options of withdrawal procedure to improve the perfusion of the hand and maintaining shunt was reviewed. She declined to have this done. Thus the shunt was removed. As a result the patient was also advised that at the time the shunt was removed that a rim of the graft would be left particularly at the arterial anastomosis to avoid narrowing this down. DESCRIPTION OF PROCEDURE: The old sutures were removed. The wound was irrigated. The graft clipped at both ends and then oversewn on the arterial side with Cortex sutures, on the venous side we simply clipped it. This resulted in improvement in flow to the hand and the procedure was terminated. There was not much improvement though at the time of the tracing done on pulse oximeter, but the quality of the Doppler signals seemed to be improved. The procedure was then terminated. The patient was cautioned that this may take some time to improve. It should be noted that there is no motor deficit. There is numbness, but no objective evidence of ischemia of the hand at this time. The wounds were closed and the procedure was terminated. Additional measures will have to be taken in an attempt to achieve the vascular access in the future. Operation carried out, removal of AV shunt left arm. Walter Becker Jr., MD cc: Luis Angel Castrejon MD
== END 2018-07-22 12:30 | disposition home or self-care (01) ==
LOC: C.SDS 06:52
PROVIDERS: ATTEND Surgery Vascular Surgery
DX: N18.6 End stage renal disease (principal)
CPT/HCPCS: 36415; 37242; 80048; 82948; J0690; J1170; J2250; J2704; J2710; J3010; J7040

== ENCOUNTER 2018-11-12 16:59 | Outpatient (CLI) | payer BC | END 2018-11-12 17:00 | disposition home or self-care (01) | LOC: C.RADIC 16:59 ==

== ENCOUNTER 2018-12-25 14:21 | Outpatient (CLI) | payer BC | END 2018-12-25 14:22 | disposition home or self-care (01) | LOC: C.RADIC 14:21 | DX: T85.691A Other mechanical complication of intraperitoneal dialysis catheter, initial encounter (principal) ==

== ENCOUNTER 2019-01-19 14:32 | Outpatient (CLI) | payer BC | END 2019-01-19 14:33 | disposition home or self-care (01) | LOC: C.RADIC 14:32 | DX: Z01.818 Encounter for other preprocedural examination (principal) ==